=== PATIENT | male | born 1950 | race Caucasian/White ===

== ENCOUNTER → 2016-10-16 | Outpatient (CLI) | payer MEDICARE ==
--- NOTE | 2016-10-16 09:31 | XR ---
EXAM TYPE: LUMBAR SPINE X RAY SERIES COMPARISON: NONE HISTORY: Low back pain TECHNIQUE: 4 views are submitted. FINDINGS: Exam technically limited. Severe multilevel degenerative disc disease seen with scoliosis. Grade 1 an terolisthesis L4 and 5 and L5 and S1. Scoliotic curvature noted. Calcification in the right upper marly drant measures 8 mm. IMPRESSION: 1. Severe multilevel degenerative disc disease with scoliosis and marked facet arthropathy. Grade 1 a nterolisthesis L4 on 5 and L5 on S1.
== END | disposition home or self-care (01) ==
LOC: RADXRMAIN 08:48
PROVIDERS: ATTEND Internal Medicine
DX: M51.36 Other intervertebral disc degeneration, lumbar region (principal); M41.9 Scoliosis, unspecified; M12.88 Other specific arthropathies, not elsewhere classified, other specified site
CPT/HCPCS: 72110

== ENCOUNTER 2020-04-06 08:12 | Emergency (ER) | payer MEDICARE ==
[2020-04-06] MEDS ORDERED: ASPIRIN 81 MG PO STA (08:22)
[2020-04-06] MEDS ORDERED: DILTIAZEM DRIP BOLUS FROM BAG 1 MG SOLN IV ONE (08:23)
[2020-04-06 08:35] VITALS: RESP 18
[2020-04-06] MEDS ORDERED: METOPROLOL TARTRATE 50 MG TAB PO STA (08:41)
--- NOTE | 2020-04-06 08:45 | ED ---
General Adult HPI - General Chief complaint: Arrhythmia/Palpitations Stated complaint: Cardiac dysrhythmia Time Seen by Provider: 04/06/20 08:30 Source: patient, EMS, RN notes reviewed, old records reviewed Mode of arrival: EMS Limitations: no limitations - History of Present Illness Initial comments: This is a 69-year-old male with a past medical history significant for atrial fibrillation and high blood pressure. Patient states he woke up this morning had to urinate and he stated that he urinated approximately half a gallon. Patient states is very unusual. Patient states he did not take any diuretics. Patient states he started having a little pain in the left side of his neck and some chest discomfort he states it lasted about 5 minutes and so he called EMS. Patient states currently he is chest pain-free and he has no symptoms and feels at his baseline. Patient denies any headache patient denies numbness weakness. Patient denies any lightheadedness or dizziness. Patient denies any recent fever chills or cough per patient denies any abdominal pain patient denies nausea vomiting diarrhea. Patient denies any dysuria hematuria or urinary frequency just a large amount of urine when he went this morning. - Related Data Home Medications Medication Instructions Recorded Confirmed Aspirin EC [Ecotrin Low Dose] 81 mg PO DAILY 04/06/20 04/06/20 Benazepril [Lotensin] 10 mg PO DAILY 04/06/20 04/06/20 Econazole Nitrate [Econazole 1 applic TOPICAL DAILY PRN 04/06/20 04/06/20 Nitrate 1%] Fluticasone Nasal [place] [Flonase 2 spr EA NOSTRIL DAILY PRN 04/06/20 04/06/20 Nasal [place]] Furosemide [Lasix] 80 mg PO BID PRN 04/06/20 04/06/20 HYDROcodone/APAP 10-325MG [[place] 1 tab PO BID PRN 04/06/20 04/06/20 10-325] Hydrocortisone Cream 1 applic TOPICAL BID PRN 04/06/20 04/06/20 [Hydrocortisone 2.5% Cream] Metoprolol Tartrate [Lopressor] 25 mg PO BID 04/06/20 04/06/20 Potassium Chloride 8 meq PO DAILY PRN 04/06/20 04/06/20 oxyCODONE HCL [oxyCODONE HCL (IR)] 30 mg PO QID 04/06/20 04/06/20 Allergies Allergy/AdvReac Type Severity Reaction Status Date / Time No Known Allergies Allergy Verified 04/06/20 09:17 Review of Systems ROS Statement: Those systems with pertinent positive or pertinent negative responses have been documented in the HPI. ROS Other: All systems not noted in ROS Statement are negative. Past Medical History Past Medical History: Atrial Fibrillation, Hypertension History of Any Multi-Drug Resistant Organisms: None Reported Past Surgical History: Joint Replacement, Orthopedic Surgery, Tonsillectomy Additional Past Surgical History / Comment(s): WATCHMAN, MULTIPLE ORTHO SX Past Psychological History: No Psychological Hx Reported Smoking Status: Former smoker Past Alcohol Use History: None Reported Past Drug Use History: None Reported General Exam - General Exam Comments Initial Comments: GENERAL: Patient is well-developed and well-nourished. Patient is nontoxic and well- hydrated and is in no acute distress. ENT: Neck is soft and supple. No significant lymphadenopathy is noted. Oropharynx is clear. Moist mucous membranes. Neck has full range of motion without eliciting any pain. EYES: The sclera were anicteric and conjunctiva were pink and moist. Extraocular movements were intact and pupils were equal round and reactive to light. Ey elids were unremarkable. PULMONARY: Unlabored respirations. Good breath sounds bilaterally. No audible rales rhonchi or wheezing was noted. CARDIOVASCULAR: Patient's heart is irregular and about 150 beats a minute ABDOMEN: Soft and nontender with normal bowel sounds. No palpable organomegaly was noted. There is no palpable pulsatile mass. SKIN: Skin is clear with no lesions or rashes and otherwise unremarkable. NEUROLOGIC: Patient is alert and oriented x3. Cranial nerves II through XII are grossly intact. Motor and sensory are also intact. Normal speech, volume and content. Symmetrical smile. MUSCULOSKELETAL: Normal extremities with adequate strength and full range of motion. LYMPHATICS: No significant lymphadenopathy is noted PSYCHIATRIC: Normal psychiatric evaluation. Limitations: no limitations Course Vital Signs 04/06/20 04/06/20 04/06/20 08:31 08:40 09:36 Temperature 98 F Pulse Rate 154 H 61 63 Respiratory 18 18 18 Rate Blood Pressure 169/112 170/101 155/97 O2 Sat by Pulse 95 95 94 L Oximetry Medical Decision Making - Medical Decision Making EKG shows a atrial fibrillation with rapid ventricular response at 157 bpm QRS is 82 QT interval 390 QTC is 468. Patient's EKG shows no ST segment elevation. Patient was given a warm blanket and immediately after that patient converted to a normal sinus rhythm repeat EKG was showed a normal sinus rhythm at 62 bpm OR interval 174 QRS is 88 QT interval 414 QTC is 420. EKG shows no ST segment elevation or depression. Chest x-ray shows no acute abnormality. Patient was given 50 of metoprolol in the emergency department and his heart rate remained under 100. Patient was told that he probably should stay because he did have some chest discomfort and the fact that he had a heart rate of 150 260 on arrival. 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 At this point time I told the patient to take 37.5 mg of metoprolol twice a day as opposed to the prescribed amount 25 he was in agreement to that. Patient understands the risks of going home could lead to morbidity mortality. - Lab Data Result diagrams: 04/06/20 08:34 04/06/20 08:34 Lab Results 04/06/20 04/06/20 04/06/20 Range/Units 08:34 08:34 08:34 WBC 6.4 (3.8-10.6) k/uL RBC 5.68 (4.30-5.90) m/uL Hgb 16.3 (13.0-17.5) gm/dL Hct 52.6 (39.0-53.0) % MCV 92.7 (80.0-100.0) fL MCH 28.7 (25.0-35.0) pg MCHC 31.0 (31.0-37.0) g/dL RDW 13.9 (11.5-15.5) % Plt Count 201 (150-450) k/uL Neutrophils % 73 % Lymphocytes % 16 % Monocytes % 7 % Eosinophils % 1 % Basophils % 1 % Neutrophils # 4.7 (1.3-7.7) k/uL Lymphocytes # 1.0 (1.0-4.8) k/uL Monocytes # 0.4 (0-1.0) k/uL Eosinophils # 0.1 (0-0.7) k/uL Basophils # 0.1 (0-0.2) k/uL PT 10.6 (9.0-12.0) sec INR 1.0 (<1.2) APTT 25.5 (22.0-30.0) sec Sodium 138 (137-145) mmol/L Potassium 4.5 (3.5-5.1) mmol/L Chloride 104 (98-107) mmol/L Carbon Dioxide 29 (22-30) mmol/L Anion Gap 5 mmol/L BUN 16 (9-20) mg/dL Creatinine 1.01 (0.66-1.25) mg/dL Est GFR (CKD-EPI)AfAm 86 (>60 ml/min/1.73 sqM) Est GFR (CKD-EPI)NonAf 75 (>60 ml/min/1.73 sqM) Glucose 122 H (74-99) mg/dL Calcium 8.8 (8.4-10.2) mg/dL Magnesium 1.9 (1.6-2.3) mg/dL Total Bilirubin 1.4 H (0.2-1.3) mg/dL AST 35 (17-59) U/L ALT 16 (4-49) U/L Alkaline Phosphatase 67 (38-126) U/L Troponin I (0.000-0.034) ng/mL NT-Pro-B Natriuret Pep pg/mL Total Protein 7.5 (6.3-8.2) g/dL Albumin 4.1 (3.5-5.0) g/dL Urine Color Urine Appearance (Clear) Urine pH (5.0-8.0) Ur Specific [place] (1.001-1.035) Urine Protein (Negative) Urine Glucose (UA) (Negative) Urine Ketones (Negative) Urine Blood (Negative) Urine Nitrite (Negative) Urine Bilirubin (Negative) Urine Urobilinogen (<2.0) mg/dL Ur Leukocyte Esterase (Negative) 04/06/20 04/06/20 04/06/20 Range/Units 08:34 08:34 08:41 WBC (3.8-10.6) k/uL RBC (4.30-5.90) m/uL Hgb (13.0-17.5) gm/dL Hct (39.0-53.0) % MCV (80.0-100.0) fL MCH (25.0-35.0) pg MCHC (31.0-37.0) g/dL RDW (11.5-15.5) % Plt Count (150-450) k/uL Neutrophils % % Lymphocytes % % Monocytes % % Eosinophils % % Basophils % % Neutrophils # (1.3-7.7) k/uL Lymphocytes # (1.0-4.8) k/uL Monocytes # (0-1.0) k/uL Eosinophils # (0-0.7) k/uL Basophils # (0-0.2) k/uL PT (9.0-12.0) sec INR (<1.2) APTT (22.0-30.0) sec Sodium (137-145) mmol/L Potassium (3.5-5.1) mmol/L Chloride (98-107) mmol/L Carbon Dioxide (22-30) mmol/L Anion Gap mmol/L BUN (9-20) mg/dL Creatinine (0.66-1.25) mg/dL Est GFR (CKD-EPI)AfAm (>60 ml/min/1.73 sqM) Est GFR (CKD-EPI)NonAf (>60 ml/min/1.73 sqM) Glucose (74-99) mg/dL Calcium (8.4-10.2) mg/dL Magnesium (1.6-2.3) mg/dL Total Bilirubin (0.2-1.3) mg/dL AST (17-59) U/L ALT (4-49) U/L Alkaline Phosphatase (38-126) U/L Troponin I <0.012 (0.000-0.034) ng/mL NT-Pro-B Natriuret Pep 2320 pg/mL Total Protein (6.3-8.2) g/dL Albumin (3.5-5.0) g/dL Urine Color Light Yellow Urine Appearance Clear (Clear) Urine pH 7.5 (5.0-8.0) Ur Specific [place] 1.010 (1.001-1.035) Urine Protein Trace H (Negative) Urine Glucose (UA) Negative (Negative) Urine Ketones Negative (Negative) Urine Blood Negative (Negative) Urine Nitrite Negative (Negative) Urine Bilirubin Negative (Negative) Urine Urobilinogen <2.0 (<2.0) mg/dL Ur Leukocyte Esterase Negative (Negative) Critical Care Time Critical Care Time: Yes Total Critical Care Time: 35 Disposition Clinical Impression: Atrial fibrillation with RVR, Hypertensive urgency Disposition: HOME SELF-CARE Instructions (If sedation given, give patient instructions): A-fib (Atrial Fibrillation) (ED) Is patient prescribed a controlled substance at d/c from ED?: No Referrals: Sussy Moe MD [Primary Care Provider] - 1-2 days Time of Disposition: 09:51
[2020-04-06 08:49] LABS: Basophils # (A) 0.1 k/uL (0-0.2); Basophils % (A) 1 %; Eosinophils # (A) 0.1 k/uL (0-0.7); Eosinophils % (A) 1 %; HCT 52.6 % (39.0-53.0); HGB 16.3 gm/dL (13.0-17.5); Lymphocytes % (A) 16 %; MCH 28.7 pg (25.0-35.0); MCV 92.7 fL (80.0-100.0); Mean Platelet Volume 6.9; Monocytes # (A) 0.4 k/uL (0-1.0); Monocytes % (A) 7 %; Neutrophils # (A) 4.7 k/uL (1.3-7.7); Neutrophils % (A) 73 %; Platelet Count 201 k/uL (150-450); RBC 5.68 m/uL (4.30-5.90); RDW 13.9 % (11.5-15.5); WBC 6.4 k/uL (3.8-10.6)
[2020-04-06 08:59] LABS: Albumin 4.1 g/dL (3.5-5.0); Calcium 8.8 mg/dL (8.4-10.2); Magnesium 1.9 mg/dL (1.6-2.3); Total Bilirubin 1.4 mg/dL (0.2-1.3); Total Protein 7.5 g/dL (6.3-8.2)
[2020-04-06] MEDS ORDERED: DILTIAZEM 125 MG in SODIUM CHLORIDE 0.9% 100 ML IV SCH (09:00)
[2020-04-06 09:01] LABS: Potassium 4.5 mmol/L (3.5-5.1)
--- NOTE | 2020-04-06 09:13 | XR ---
EXAMINATION TYPE: XR chest 2V DATE OF EXAM: 04/06/2020 CLINICAL HISTORY: Chest pain TECHNIQUE: Frontal and lateral views of the chest are obtained. COMPARISON: None FINDINGS: The cardiomediastinal silhouette is within normal limits for size. There is tortuous cours e of the thoracic aorta. Pulmonary vasculature is normal. There is no focal air space opacity, pleura l effusion, or pneumothorax seen. Degenerative changes of the spine. Incompletely visualized left isaias ulder arthroplasty, with proximal component superior to the glenoid. IMPRESSION: No acute cardiopulmonary process.
[2020-04-06 09:14] LABS: Appearance,Urine Clear (Clear); Bilirubin,Urine Negative (Negative); Blood,Urine Negative (Negative); Color,Urine Light Yellow; Glucose,Urine (UA) Negative (Negative); Ketones,Urine Negative (Negative); Leukocyte Esterase,Urine Negative (Negative); Nitrite,Urine Negative (Negative); PH, Urine 7.5 (5.0-8.0); Protein,Urine Trace (Negative); Urobilinogen,Urine <2.0 mg/dL (<2.0)
[2020-04-06 09:38] LABS: Partial Thromboplastin Time 25.5 sec (22.0-30.0); Prothrombin Time 10.6 sec (9.0-12.0)
[2020-04-06 10:04] VITALS: BP 148/98; PULSE 62; TEMP 98.4
== END 2020-04-06 10:00 | disposition home or self-care (01) ==
LOC: EC 08:12
DX: I48.91 Unspecified atrial fibrillation (principal); I16.0 Hypertensive urgency; I10 Essential (primary) hypertension; Z79.82 Long term (current) use of aspirin; Z79.899 Other long term (current) drug therapy; Z87.891 Personal history of nicotine dependence
CPT/HCPCS: 36415; 71046; 80053; 81003; 83735; 83880; 84484; 85025; 85610; 85730; 93005; 99291

== ENCOUNTER 2020-04-24 23:23 | Emergency (ER) | payer MEDICARE ==
[2020-04-24 23:36] VITALS: RESP 18
[2020-04-24] MEDS ORDERED: hydrALAZINE HCL 20 MG/ML 1 ML VIAL IVP STA (23:49)
[2020-04-25 00:10] LABS: Basophils # (A) 0.1 k/uL (0-0.2); Basophils % (A) 1 %; Eosinophils # (A) 0.1 k/uL (0-0.7); Eosinophils % (A) 1 %; HCT 49.2 % (39.0-53.0); HGB 15.4 gm/dL (13.0-17.5); Lymphocytes # (A) 1.2 k/uL (1.0-4.8); Lymphocytes % (A) 13 %; MCH 29.3 pg (25.0-35.0); MCHC 31.3 g/dL (31.0-37.0); MCV 93.3 fL (80.0-100.0); Mean Platelet Volume 6.9; Monocytes # (A) 0.5 k/uL (0-1.0); Monocytes % (A) 5 %; Neutrophils # (A) 7.1 k/uL (1.3-7.7); Neutrophils % (A) 78 %; Platelet Count 187 k/uL (150-450); RBC 5.27 m/uL (4.30-5.90); RDW 13.8 % (11.5-15.5); WBC 9.1 k/uL (3.8-10.6)
[2020-04-25 00:22] LABS: Albumin 3.6 g/dL (3.5-5.0); Potassium 4.3 mmol/L (3.5-5.1); Total Bilirubin 0.6 mg/dL (0.2-1.3); Total Protein 6.4 g/dL (6.3-8.2)
--- NOTE | 2020-04-25 00:25 | ED ---
Headache HPI - General Chief Complaint: Headache Stated Complaint: Hypertension Time Seen by Provider: 04/24/20 23:37 Mode of arrival: EMS Limitations: physical limitation - History of Present Illness Initial Comments: 69 with hx HTN presenting today for cc of elevated blood pressure readings. Patient stats that he has had congestion and woke up this morning with a "stuffy nose" he states he used afrin and shortly after he felt "off" he states he was just fatigued and had had headache. He denies sudden onset of KELLY, or this being worst or first KELLY of his life. Denies localized neurological symptoms such as wekaness, sensation deficits, speech changes, visual changes or loss. Denies chest pain, SOB, back pain, decreased or changes in urine output,LE edema, nausea, vomiting, fevers, cough. Patient states he took his BP and it was elevated, he states he has been compliant with his benazapril and metoprolol. Patient states the headache resolved but the BP remained high throughout the day on arrival and history taking. Patient states "now I feel fine". Patient has no current complaints. He appears well nontxic, very kind and talkative. - Related Data Home Medications Medication Instructions Recorded Confirmed Aspirin EC [Ecotrin Low Dose] 81 mg PO DAILY 04/06/20 04/06/20 Benazepril [Lotensin] 10 mg PO DAILY 04/06/20 04/06/20 Econazole Nitrate [Econazole 1 applic TOPICAL DAILY PRN 04/06/20 04/06/20 Nitrate 1%] Fluticasone Nasal [place] [Flonase 2 spr EA NOSTRIL DAILY PRN 04/06/20 04/06/20 Nasal [place]] Furosemide [Lasix] 80 mg PO BID PRN 04/06/20 04/06/20 HYDROcodone/APAP 10-325MG [[place] 1 tab PO BID PRN 04/06/20 04/06/20 10-325] Hydrocortisone Cream 1 applic TOPICAL BID PRN 04/06/20 04/06/20 [Hydrocortisone 2.5% Cream] Metoprolol Tartrate [Lopressor] 25 mg PO BID 04/06/20 04/06/20 Potassium Chloride 8 meq PO DAILY PRN 04/06/20 04/06/20 oxyCODONE HCL [oxyCODONE HCL (IR)] 30 mg PO QID 04/06/20 04/06/20 Allergies Allergy/AdvReac Type Severity Reaction Status Date / Time No Known Allergies Allergy Verified 04/24/20 23:36 Review of Systems ROS Statement: Those systems with pertinent positive or pertinent negative responses have been documented in the HPI. ROS Other: All systems not noted in ROS Statement are negative. Past Medical History Past Medical History: Atrial Fibrillation, Hypertension History of Any Multi-Drug Resistant Organisms: None Reported Past Surgical History: Joint Replacement, Orthopedic Surgery, Tonsillectomy Additional Past Surgical History / Comment(s): WATCHMAN, MULTIPLE ORTHO SX Past Psychological History: No Psychological Hx Reported Smoking Status: Former smoker Past Alcohol Use History: None Reported Past Drug Use History: None Reported General Exam - General Exam Comments Initial Comments: General: The patient is awake and alert, in no distress, and does not appear acutely ill. Eye: +3 mm pupils are equal, round and reactive to light, extra-ocular movements are intact. No nystagmus. There is normal conjunctiva bilaterally. No signs of icterus. Ears, nose, mouth and throat: There are moist mucous membranes and no oral lesions. Neck: The neck is supple, there is no tenderness or JVD. Cardiovascular: There is a regular rate and rhythm. No murmur, rub or gallop is appreciated. Respiratory: Lungs are clear to auscultation, respirations are non-labored, breath sounds are equal. No wheezes, stridor, rales, or rhonchi. Gastrointestinal: Soft, non-distended, non-tender abdomen without masses or organomegaly noted. There is no rebound or guarding present. Musculoskeletal: Normal ROM, no tenderness. Strength 5/5. Sensation intact. radial pulses equal bilaterally 2+. Neurological: A&O x 3. CN II-XII intact, There are no obvious motor or sensory deficits. Coordination appears grossly intact. Speech is normal. Skin: Skin is warm and dry and no rashes or lesions are noted. NO LE edema. Psychiatric: Cooperative, appropriate mood & affect, normal judgment. Limitations: physical limitation Course Vital Signs 04/24/20 04/24/20 04/25/20 23:23 23:36 00:01 Temperature 98.5 F Pulse Rate 53 L 54 L 57 L Respiratory 18 18 18 Rate Blood Pressure 178/78 185/94 152/73 O2 Sat by Pulse 95 95 95 Oximetry 04/25/20 04/25/20 00:27 01:23 Temperature 98.4 F Pulse Rate 60 63 Respiratory 18 18 Rate Blood Pressure 134/79 138/72 O2 Sat by Pulse 96 95 Oximetry Medical Decision Making - Medical Decision Making Labs stable. Slight increase creatinine. BP improving. Denies to me any current symptoms. No focalized neurological deficits. No headache. Patient case discussed with Dr. Farrell we feel pt is stable for discharge with PCP f/u. Discontinuation of afrin and home BP monitoring. - Lab Data Result diagrams: 04/24/20 23:53 04/24/20 23:53 Lab Results 04/24/20 04/24/20 04/24/20 Range/Units 23:53 23:53 23:53 WBC 9.1 (3.8-10.6) k/uL RBC 5.27 (4.30-5.90) m/uL Hgb 15.4 (13.0-17.5) gm/dL Hct 49.2 (39.0-53.0) % MCV 93.3 (80.0-100.0) fL MCH 29.3 (25.0-35.0) pg MCHC 31.3 (31.0-37.0) g/dL RDW 13.8 (11.5-15.5) % Plt Count 187 (150-450) k/uL Neutrophils % 78 % Lymphocytes % 13 % Monocytes % 5 % Eosinophils % 1 % Basophils % 1 % Neutrophils # 7.1 (1.3-7.7) k/uL Lymphocytes # 1.2 (1.0-4.8) k/uL Monocytes # 0.5 (0-1.0) k/uL Eosinophils # 0.1 (0-0.7) k/uL Basophils # 0.1 (0-0.2) k/uL Sodium 138 (137-145) mmol/L Potassium 4.3 (3.5-5.1) mmol/L Chloride 103 (98-107) mmol/L Carbon Dioxide 31 H (22-30) mmol/L Anion Gap 4 mmol/L BUN 25 H (9-20) mg/dL Creatinine 1.50 H (0.66-1.25) mg/dL Est GFR (CKD-EPI)AfAm 54 (>60 ml/min/1.73 sqM) Est GFR (CKD-EPI)NonAf 46 (>60 ml/min/1.73 sqM) Glucose 120 H (74-99) mg/dL Calcium 9.0 (8.4-10.2) mg/dL Total Bilirubin 0.6 (0.2-1.3) mg/dL AST 22 (17-59) U/L ALT 13 (4-49) U/L Alkaline Phosphatase 88 (38-126) U/L Troponin I <0.012 (0.000-0.034) ng/mL Total Protein 6.4 (6.3-8.2) g/dL Albumin 3.6 (3.5-5.0) g/dL Disposition Clinical Impression: Elevated blood pressure reading, Headache Disposition: HOME SELF-CARE Condition: Good Instructions (If sedation given, give patient instructions): Chronic Hypertension (ED) Additional Instructions: Please use medication as discussed. Please follow-up with family doctor in the next 2 days. Discontinue Afrin. Please return to emergency room if the symptoms increase or worsen or for any other concerns. Is patient prescribed a controlled substance at d/c from ED?: No Referrals: Sussy Moe MD [Primary Care Provider] - 1-2 days Time of Disposition: 00:57
[2020-04-25 01:25] VITALS: BP 138/72; PULSE 63; TEMP 98.4
== END 2020-04-25 01:23 | disposition home or self-care (01) ==
LOC: EC 23:23
DX: I10 Essential (primary) hypertension (principal); Z79.899 Other long term (current) drug therapy; Z87.891 Personal history of nicotine dependence
CPT/HCPCS: 36415; 93005; 80053; 84484; 85025; 99284; 96374; J0360

== ENCOUNTER 2020-09-23 04:31 | Inpatient (IN) | payer MEDICARE ==
[2020-09-23] MEDS ORDERED: DILTIAZEM DRIP BOLUS FROM BAG 1 MG SOLN IV ONE ×3 (04:43→06:43)
--- NOTE | 2020-09-23 04:47 | ED ---
Arrhythmia/Palpitations HPI - General Chief Complaint: Arrhythmia/Palpitations Stated Complaint: Afib Time Seen by Provider: 09/23/20 04:42 Source: patient, EMS Mode of arrival: EMS Limitations: no limitations - History of Present Illness Initial Comments: This patient is 70-year-old man who is brought by ambulance to have evaluation for palpitations, generalized weakness, which have been getting worse over the course of last night and this morning. Are related to the palpitations come patient does state he has history of atrial fibrillation and has been taking metoprolol for this. The patient is not on anticoagulation, as he has had a watchman device implanted. Tonight, the patient also has been having some epigastric abdominal discomfort and some dyspnea. MD Complaint: palpitations -: hour(s) Context: occurred during rest Arrhythmia History: atrial fibrillation Associated Symptoms: cough, other (Congestion) - Related Data Home Medications Medication Instructions Recorded Confirmed Aspirin EC [Ecotrin Low Dose] 81 mg PO DAILY 04/06/20 09/23/20 Benazepril [Lotensin] 10 mg PO DAILY 04/06/20 09/23/20 Econazole Nitrate [Econazole 1 applic TOPICAL DAILY PRN 04/06/20 09/23/20 Nitrate 1%] Fluticasone Nasal [place] [Flonase 2 spr EA NOSTRIL DAILY PRN 04/06/20 09/23/20 Nasal [place]] Furosemide [Lasix] 80 mg PO BID PRN 04/06/20 09/23/20 HYDROcodone/APAP 10-325MG [[place] 1 tab PO TID PRN 04/06/20 09/23/20 10-325] Hydrocortisone Cream 1 applic TOPICAL BID PRN 04/06/20 09/23/20 [Hydrocortisone 2.5% Cream] Metoprolol Tartrate [Lopressor] 25 mg PO BID 04/06/20 09/23/20 Potassium Chloride 8 meq PO DAILY PRN 04/06/20 09/23/20 Amoxicillin 500 mg PO Q8H 09/23/20 09/23/20 oxyCODONE HCL [oxyCODONE HCL (IR)] 20 mg PO QID PRN 09/23/20 09/23/20 Allergies Allergy/AdvReac Type Severity Reaction Status Date / Time No Known Allergies Allergy Verified 09/23/20 04:34 Review of Systems ROS Statement: Those systems with pertinent positive or pertinent negative responses have been documented in the HPI. ROS Other: All systems not noted in ROS Statement are negative. Constitutional: Reports: fever. Denies: chills, weakness Respiratory: Reports: cough. Denies: dyspnea, wheezes Cardiovascular: Reports: palpitations. Denies: chest pain, orthopnea, edema, syncope Gastrointestinal: Reports: as per HPI, abdominal pain. Denies: nausea, vomiting, diarrhea, melena, hematochezia Genitourinary: Denies: dysuria, hematuria Musculoskeletal: Denies: back pain Skin: Denies: rash Neurological: Denies: headache, weakness, numbness Past Medical History Past Medical History: Atrial Fibrillation, Hypertension History of Any Multi-Drug Resistant Organisms: None Reported Past Surgical History: Joint Replacement, Orthopedic Surgery, Tonsillectomy Additional Past Surgical History / Comment(s): WATCHMAN, MULTIPLE ORTHO SX Past Psychological History: No Psychological Hx Reported Smoking Status: Former smoker Past Alcohol Use History: None Reported Past Drug Use History: None Reported - Past Family History Mother Family Medical History: Coronary Artery Disease (CAD) General Exam Limitations: no limitations General appearance: alert, in no apparent distress Head exam: Present: atraumatic, normocephalic Eye exam: Present: normal appearance. Absent: scleral icterus, conjunctival injection ENT exam: Present: normal oropharynx Neck exam: Present: normal inspection Respiratory exam: Present: normal lung sounds bilaterally. Absent: respiratory distress, wheezes, rales, rhonchi, stridor Cardiovascular Exam: Present: tachycardia, irregular rhythm, normal heart soun ds. Absent: systolic murmur, diastolic murmur, rubs, gallop GI/Abdominal exam: Present: soft. Absent: distended, tenderness, guarding, rebound, rigid, mass Extremities exam: Present: normal inspection, normal capillary refill. Absent: pedal edema, calf tenderness Back exam: Present: normal inspection. Absent: CVA tenderness (R), CVA tenderness (L) Neurological exam: Present: alert Skin exam: Present: warm, dry, intact, normal color. Absent: rash Course Vital Signs 09/23/20 09/23/20 09/23/20 04:34 04:55 05:05 Temperature 101.1 F H Pulse Rate 138 H 156 H Pulse Rate [ 168 H Apical] Respiratory 24 22 Rate Blood Pressure 138/99 115/83 O2 Sat by Pulse 87 L 93 L Oximetry 09/23/20 09/23/20 09/23/20 05:14 05:42 06:00 Temperature Pulse Rate 137 H 147 H 147 H Pulse Rate [ Apical] Respiratory 18 22 Rate Blood Pressure 128/99 114/58 O2 Sat by Pulse 93 L 92 L Oximetry 09/23/20 09/23/20 09/23/20 06:41 06:48 06:52 Temperature 100.7 F H Pulse Rate 144 H 131 H 151 H Pulse Rate [ Apical] Respiratory 22 22 18 Rate Blood Pressure 78/65 90/70 81/59 O2 Sat by Pulse 94 L 93 L 90 L Oximetry 09/23/20 09/23/20 09/23/20 07:20 07:34 07:57 Temperature 99.1 F Pulse Rate 134 H Pulse Rate [ Apical] Respiratory 20 Rate Blood Pressure 86/62 109/94 101/75 O2 Sat by Pulse 93 L Oximetry 09/23/20 09/23/20 09/23/20 09:03 11:20 11:24 Temperature Pulse Rate 131 H 121 H 133 H Pulse Rate [ Apical] Respiratory 18 18 18 Rate Blood Pressure 83/65 82/61 O2 Sat by Pulse 93 L 93 L Oximetry 09/23/20 09/23/20 12:00 12:32 Temperature 99.0 F Pulse Rate 125 H Pulse Rate [ Apical] Respiratory 18 Rate Blood Pressure 104/74 116/82 O2 Sat by Pulse 93 L 93 L Oximetry EKG Findings - EKG Results: EKG: interpreted by ERMD, normal axis EKG shows: atrial fibrillation (With RVR rate approximately 158 bpm) - Blocks, [place], Hypertrophy, ST Abn: Repolarization changes or abnormalities: ST suggestive of injury Medical Decision Making - Medical Decision Making Patient 70-year-old man with history of atrial fibrillation, presenting with at rial fibrillation and rapid ventricular response. Patient also found to have Covid 19 infection. Cardizem started here and rate has come down from the neighborhood of 162 proximally 120. Case is discussed with admitting physician and will have cardiology consultation as well. - Lab Data Result diagrams: 09/24/20 07:06 09/24/20 07:06 Lab Results 09/23/20 09/23/20 09/23/20 Range/Units 04:52 04:52 04:52 WBC 4.5 (3.8-10.6) k/uL RBC 5.06 (4.30-5.90) m/uL Hgb 15.4 (13.0-17.5) gm/dL Hct 45.4 (39.0-53.0) % MCV 89.6 (80.0-100.0) fL MCH 30.5 (25.0-35.0) pg MCHC 34.0 (31.0-37.0) g/dL RDW 14.0 (11.5-15.5) % Plt Count 125 L (150-450) k/uL MPV 8.4 Neutrophils % 68 % Lymphocytes % 15 % Monocytes % 12 % Eosinophils % 0 % Basophils % 1 % Neutrophils # 3.0 (1.3-7.7) k/uL Lymphocytes # 0.7 L (1.0-4.8) k/uL Monocytes # 0.5 (0-1.0) k/uL Eosinophils # 0.0 (0-0.7) k/uL Basophils # 0.0 (0-0.2) k/uL PT 10.6 (9.0-12.0) sec INR 1.0 (<1.2) APTT 25.3 (22.0-30.0) sec Sodium 135 L (137-145) mmol/L Potassium 4.1 (3.5-5.1) mmol/L Chloride 100 (98-107) mmol/L Carbon Dioxide 28 (22-30) mmol/L Anion Gap 7 mmol/L BUN 22 H (9-20) mg/dL Creatinine 1.10 (0.66-1.25) mg/dL Est GFR (CKD-EPI)AfAm 77 (>60 ml/min/1.73 sqM) Est GFR (CKD-EPI)NonAf 67 (>60 ml/min/1.73 sqM) Glucose 118 H (74-99) mg/dL Calcium 8.1 L (8.4-10.2) mg/dL Magnesium 2.0 (1.6-2.3) mg/dL Total Bilirubin 1.3 (0.2-1.3) mg/dL AST 62 H (17-59) U/L ALT 36 (4-49) U/L Alkaline Phosphatase 48 (38-126) U/L Troponin I (0.000-0.034) ng/mL Total Protein 6.6 (6.3-8.2) g/dL Albumin 3.5 (3.5-5.0) g/dL TSH 0.950 (0.465-4.680) mIU/L Coronavirus (PCR) (Not Detectd) 09/23/20 09/23/20 Range/Units 04:52 04:52 WBC (3.8-10.6) k/uL RBC (4.30-5.90) m/uL Hgb (13.0-17.5) gm/dL Hct (39.0-53.0) % MCV (80.0-100.0) fL MCH (25.0-35.0) pg MCHC (31.0-37.0) g/dL RDW (11.5-15.5) % Plt Count (150-450) k/uL MPV Neutrophils % % Lymphocytes % % Monocytes % % Eosinophils % % Basophils % % Neutrophils # (1.3-7.7) k/uL Lymphocytes # (1.0-4.8) k/uL Monocytes # (0-1.0) k/uL Eosinophils # (0-0.7) k/uL Basophils # (0-0.2) k/uL PT (9.0-12.0) sec INR (<1.2) APTT (22.0-30.0) sec Sodium (137-145) mmol/L Potassium (3.5-5.1) mmol/L Chloride (98-107) mmol/L Carbon Dioxide (22-30) mmol/L Anion Gap mmol/L BUN (9-20) mg/dL Creatinine (0.66-1.25) mg/dL Est GFR (CKD-EPI)AfAm (>60 ml/min/1.73 sqM) Est GFR (CKD-EPI)NonAf (>60 ml/min/1.73 sqM) Glucose (74-99) mg/dL Calcium (8.4-10.2) mg/dL Magnesium (1.6-2.3) mg/dL Total Bilirubin (0.2-1.3) mg/dL AST (17-59) U/L ALT (4-49) U/L Alkaline Phosphatase (38-126) U/L Troponin I 0.056 H* (0.000-0.034) ng/mL Total Protein (6.3-8.2) g/dL Albumin (3.5-5.0) g/dL TSH (0.465-4.680) mIU/L Coronavirus (PCR) Detected A (Not Detectd) Critical Care Time Critical Care Time: Yes (30 minutes) Disposition Clinical Impression: Atrial fibrillation, COVID-19, Elevated troponin I level Disposition: ADMITTED IP TO THIS HOSP Condition: Poor
[2020-09-23] MEDS ORDERED: DILTIAZEM 125 MG in SODIUM CHLORIDE 0.9% 100 ML IV SCH (05:00)
[2020-09-23 05:05] LABS: Basophils % (A) 1 %; Eosinophils % (A) 0 %; HCT 45.4 % (39.0-53.0); HGB 15.4 gm/dL (13.0-17.5); Lymphocytes # (A) 0.7 k/uL (1.0-4.8); Lymphocytes % (A) 15 %; MCH 30.5 pg (25.0-35.0); MCV 89.6 fL (80.0-100.0); Mean Platelet Volume 8.4; Monocytes # (A) 0.5 k/uL (0-1.0); Monocytes % (A) 12 %; Neutrophils % (A) 68 %; Platelet Count 125 k/uL (150-450); RBC 5.06 m/uL (4.30-5.90); WBC 4.5 k/uL (3.8-10.6)
[2020-09-23 05:15] LABS: Calcium 8.1 mg/dL (8.4-10.2); Total Bilirubin 1.3 mg/dL (0.2-1.3)
[2020-09-23] MEDS ORDERED: ACETAMINOPHEN TAB 325 MG TAB PO STA (05:20)
[2020-09-23 05:21] LABS: Potassium 4.1 mmol/L (3.5-5.1)
[2020-09-23 05:22] LABS: Albumin 3.5 g/dL (3.5-5.0); Total Protein 6.6 g/dL (6.3-8.2)
[2020-09-23] MEDS ORDERED: HYDROmorphone 1 MG/ML 1 ML SYRINGE IVP STA (05:22)
[2020-09-23 05:25] LABS: Partial Thromboplastin Time 25.3 sec (22.0-30.0); Prothrombin Time 10.6 sec (9.0-12.0)
--- NOTE | 2020-09-23 05:48 | XR ---
EXAMINATION TYPE: XR chest 1V portable DATE OF EXAM: 09/23/2020 COMPARISON: 04/06/2020 HISTORY: Chest pain TECHNIQUE: Single frontal view of the chest is obtained. FINDINGS: Exam is mildly limited by poor inspiratory effort. The lungs are clear. There is no pleural effusion or pneumothorax. Heart size and pulmonary vasculatu re are within normal limits. There is mild persistent elevation right hemisphere diaphragm which was seen previously. IMPRESSION: No acute cardiopulmonary disease with no interval change.
[2020-09-23] MEDS ORDERED: NITROGLYCERIN SL TABS 0.4 MG TAB SUBLINGUAL PRN (06:23)
[2020-09-23] MEDS ORDERED: SODIUM CHLORIDE 0.9% 500 ML 500 ML IV STA (06:39)
[2020-09-23] MEDS: DILTIAZEM 125 MG in SODIUM CHLORIDE 0.9% 100 ML IV SCH ×2 (06:45→16:21)
[2020-09-23] MEDS ORDERED: METOPROLOL TARTRATE 5 MG/5 ML VIAL IVP PRN (08:51)
[2020-09-23] MEDS ORDERED: HYDROcodone/APAP 5-325MG 1 EACH TAB PO PRN (08:58)
[2020-09-23] MEDS ORDERED: ACETAMINOPHEN TAB 325 MG TAB PO PRN (08:58)
[2020-09-23] MEDS ORDERED: MELATONIN 3 MG TABLET PO PRN (08:58)
[2020-09-23] MEDS ORDERED: ALBUTEROL NEBULIZED 2.5 MG/3 ML INHALATION PRN (10:51)
[2020-09-23] MEDS ORDERED: FLUTICASONE 50MCG/SPRAY NASAL 16GM EA NOSTRIL PRN (10:59)
[2020-09-23] MEDS ORDERED: NALOXONE 0.4 MG/ML 1 ML VIAL IV PRN (11:01)
[2020-09-23] MEDS: METOPROLOL TARTRATE 25 MG TAB PO SCH ×2 (11:15→20:18)
[2020-09-23 11:16] LABS: C Reactive Protein 52.6 mg/L (<10.0)
[2020-09-23] MEDS: ASCORBIC ACID 500 MG TAB PO SCH (11:19)
[2020-09-23] MEDS: FAMOTIDINE 20 MG TAB PO SCH (11:19)
[2020-09-23] MEDS: dexAMETHasone 2 MG TAB PO SCH (11:19)
[2020-09-23] MEDS: ASPIRIN 81 MG PO SCH (11:19)
[2020-09-23] MEDS: ZINC SULFATE 220 MG CAP PO SCH (11:19)
[2020-09-23] MEDS: HEPARIN SODIUM,PORCINE/PF 5,000 UNIT/0.5 ML SYRINGE SQ SCH ×2 (11:20→11:24)
[2020-09-23] MEDS ORDERED: ALBUTEROL NEBULIZED 2.5 MG/3 ML INHALATION SCH (12:00)
--- NOTE | 2020-09-23 12:34 | ECHOF ---
Referral Reason:LV function, afib MEASUREMENTS -------- HEIGHT: 180.3 cm WEIGHT: 133.8 kg BP: IVSd: 1.8 cm (0.6 - 1.1) LVIDd: 4.0 cm (3.9 - 5.3) LVPWd: 1.5 cm (0.6 - 1.1) IVSs: 2.1 cm LVIDs: 2.6 cm LVPWs: 1.8 cm Ao Diam: 3.2 cm (2.0 - 3.7) LA Diam: 4.0 cm (2.7 - 3.8) AR PHT: 537 ms RAP: 5.00 mmHg RVSP: 14.20 mmHg FINDINGS -------- Atrial fibrillation. This was a technically difficult study with suboptimal views. The left ventricular size is normal. There is moderate concentric left ventricular hypertrophy. O verall left ventricular systolic function is normal with, an EF between 55 - 60 %. Left ventricular fillimg pressure cannot be estimated due to Atrial fibrillation. The right ventricle is normal in size. The left atrium is mildly dilated. The right atrial size is normal. 5.0mg OF [place] UTLIZED: 2 OR MORE WALL SEGMENTS NOT VISUALIZED. The aortic valve was not well visualized. Trace amount of aortic regurgitation. The mitral valve is normal. There is trace mitral regurgitation. The tricuspid valve appears structurally normal. Trace tricuspid regurgitation present. Right shaye tricular systolic pressure is normal at < 35 mmHg. There is no pulmonic regurgitation present. The aortic root size is normal. IVC Not well visulized. There is no pericardial effusion. CONCLUSIONS -------- 1. The left ventricular size is normal. 2. There is moderate concentric left ventricular hypertrophy. 3. Overall left ventricular systolic function is normal with, an EF between 55 - 60 %. 4. Left ventricular fillimg pressure cannot be estimated due to Atrial fibrillation. 5. The left atrium is mildly dilated. 6. Trace amount of aortic regurgitation. 7. There is trace mitral regurgitation. 8. Trace tricuspid regurgitation present. 9. There is no pericardial effusion. HEEL BOOM OPERATOR: Karoline Feng, [facility]
--- NOTE | 2020-09-23 12:50 | CONS ---
CONSULTATION CHIEF COMPLAINT: Atrial fibrillation with rapid ventricular rate. Dino is a 70-year-old gentleman with history of paroxysmal atrial fibrillation and hypertension status post Watchman device, who sees my associate Dr. Danielson on a regular basis, comes to hospital complaining of fatigue, tiredness, not feeling well, coughing and has been diagnosed with COVID infection. He was also found to be in atrial fibrillation with rapid ventricular rate for which Cardiology had been consulted. He is currently on intravenous Cardizem with reasonably well controlled heart rates. He is also on Lopressor as needed. He is not on IV heparin as he already had a Watchman device and was thought not to be a candidate for long-term oral anticoagulation. The exact reason for this is unclear. The patient tells me that the anticoagulants were difficult to manage and the were too expensive and not sure if this is indeed the reason. PAST MEDICAL HISTORY: Significant for paroxysmal atrial fibrillation and hypertension. MEDICATIONS: Medications at home include Lotensin 10 mg daily, aspirin, Flonase, Lopressor 25 b.i.d., Lasix 80 b.i.d. on an as needed basis, [place] and oxycodone. ALLERGIES: There are no known drug allergies. FAMILY HISTORY: Significant for premature coronary artery disease in his mother. SOCIAL HISTORY: Significant for smoking. There is no history of EtOH abuse or drug abuse. REVIEW OF SYSTEMS: HEENT: Unremarkable. CARDIAC: Significant for palpitations. RESPIRATORY: Significant for cough and shortness of breath. PSYCHOSOCIAL: Negative. ENDOCRINE: Negative. HEMATOLOGIC: Negative. DERM: Negative. CONSTITUTIONAL: Significant for fatigue, tiredness and feverishness. NEUROLOGICAL: Negative. Rest of the system review is not relevant. PHYSICAL EXAMINATION: Temperature is 99.1, heart rate is 130 beats per minute, blood pressure is 101/75, respiratory rate is 18, O2 saturation is 93% on 2 L. I have seen the patient from outside the room and in an effort to ( ) protective equipment, I did not perform a complete physical exam. LABS: I had extensive discussion with the patient's nurse. Labs show a hemoglobin of 15.4, platelet count 155, potassium is 4.1 creatinine is 1.1. Troponin is elevated at 0.056. Coronavirus is positive. The EKG shows atrial fibrillation with nonspecific ST-T wave changes. Chest x-ray is negative. ASSESSMENT: 1. Persistent atrial fibrillation with poorly controlled ventricular rate. 2. COVID infection. 3. Mild troponin elevation probably related to the constitutional illness. This is not suggestive of a myocardial infarction. PLAN: I am going to obtain a 2D echo on him to evaluate his LV function and wall motion. Continue the patient on IV Cardizem. He does not need anticoagulation. Troponin elevation is of no significance. I will just obtain one more troponin on him. Thank you for allowing us to participate in the care of this pleasant gentleman. TON / TIKAN: [id number] /
[2020-09-23] MEDS ORDERED: METOPROLOL TARTRATE 5 MG/5 ML VIAL IVP STA (13:32)
[2020-09-23] MEDS ORDERED: METOPROLOL TARTRATE 25 MG TAB PO STA (13:33)
[2020-09-23] MEDS: SODIUM CHLORIDE 0.9% 1,000 ML IV SCH (13:48)
[2020-09-23] MEDS ORDERED: ALBUTEROL HFA INHALER INHALATION PRN (14:00)
[2020-09-23 14:55] LABS: Glucose,Whole Blood 132 mg/dL (75-99)
[2020-09-23] MEDS: ONDANSETRON 4 MG/2 ML VIAL IVP PRN (15:00)
[2020-09-23] MEDS: ALBUTEROL HFA INHALER INHALATION SCH ×2 (15:40→19:50)
[2020-09-23] MEDS: HYDROcodone/APAP 10-325MG 1 EACH TAB PO PRN (16:26)
--- NOTE | 2020-09-23 17:03 | P.HPIM ---
<Ger Johnson - Last Filed: 09/23/20 16:01> History of Present Illness H&P Date: 09/23/20 History of presenting illness: Patient is a 70-year-old male with a past medical history significant for hypertension and atrial fibrillation not on anticoagulation but has implanted watchman's device. He presented to the emergency department this morning with a chief complaint of palpitations accompanied by a fever, generalized weakness and fatigue, epigastric pain, and dyspnea. Patient was seen and fully evaluated in the emergency department resulting in diagnosis of atrial fibrillation with RVR in the 160's along with acute respiratory failure with hypoxia requiring oxygen supplementation. He was admitted under our services for continued medical management along with consult to cardiology. Upon evaluation at bedside, pt reports he has been experiencing generalized weakness and fatigue along with a fever and loss of appetite beginning 2 days ago. Patient reports early this morning he awoke feeling his heart racing and this was accompanied by epigastric pain described as a hunger-like pain and shortness of breath. Pt reports resolution of epigastric pain and shortness of breath but continues to be febrile, feel as though his heart is racing and has no appetite. Patient remains in A. fib RVR at this time with heart rate in 130s and is on a Cardizem infusion, order placed for Lopressor 1 dose. Covid 19 virus PCR was POSITIVE. Troponins were found to be elevated at 0.056, 0.065, and 0.068. EKG revealed A. fib RVR with ventricular rate of 158 bpm. Chest x-ray showing no acute cardiopulmonary process. Echocardiogram revealed an ejection fraction of 55-60%. Cardiology and pulmonology consulted. Review of systems: Pertinent positives and negatives as discussed in HPI, a complete review of systems was performed and all other systems are negative. Physical exam: General: Non toxic, appears at stated age, patient appears uncomfortable showing signs of acute distress secondary to uncontrolled tachycardic rate. Derm: warm, dry Head: atraumatic, normocephalic, symmetric Eyes: EOMI, no lid lag, anicteric sclera Mouth: no lip lesion, mucus membranes moist Cardiovascular: Irregularly irregular rhythm and tachycardic rate. No murmur. Positive posterior tibial pulses bilaterally. No lower extremity edema. Cap refill less than 2 seconds. Lungs: Respirations even, regular, and unlabored on 2 L O2 via nasal cannula with SpO2 of 93%. (Patient was 86% on room air). Lungs clear to auscultation bilaterally. No wheezes, rhonchi, or rales noted. Abdominal: soft, nontender to palpation, no guarding, no appreciable organomegaly Ext: no gross muscle atrophy, no edema, no contractures Neuro: GCS 15. Speech clear. No focal neuro deficits Psych: Alert, oriented, appropriate affect Assessment and Plan of Care: Atrial fibrillation with RVR -EKG revealing A. fib RVR with ventricular rate of 158 bpm -Echocardiogram revealed an ejection fraction of 55-60%. -Watchman's Device in place. -Continue Cardizem infusion at 15 mg per hour -Lopressor 5 mg IVP 1 dose -Resume daily Lopressor 25 mg twice daily -Continuous telemetry monitoring -Cardiology consult, appreciate recommendations Acute hypoxic respiratory failure secondary to Covid 19 pneumonitis -Chest x-ray negative for acute cardiopulmonary process. -Covid 19 positive on 09/23/20 -Oxygenation to be administered and titrated as needed to maintain SPO2 equal to or greater than 92%, wean once patient able -Dexamethasone 6 mg daily, day 1 of 10 for steroid -Zinc, vitamin C, vitamin D, and melatonin -Bronchodilator protocol with MDIs as needed for SOB and/or wheezing -Incentive Spirometry Elevated troponin, likely secondary to demand ischemia resulting from prolonged persistent RVR. -Troponins found to be elevated at 0.056, 0.065, and 0.068 -EKG revealing A. fib RVR with ventricular rate of 158 bpm. -Echocardiogram revealed an ejection fraction of 55-60%. -Continuous telemetry monitoring -Treatment of underlying cause, please see assessment and plan of care for A. fib with RVR -Continue daily metoprolol Thrombocytopenia -Thrombocytopenia with platelet count of 125,000 -Possibly secondary to recurrent infection with Covid 19 virus. -We will continue to monitor with repeat a.m. labs. Prerenal azotemia -BUN 22, creatinine 1.10, and GFR of 67. -Possibly secondary to daily Lasix use 80 mg twice daily. Encourage oral hydration and continue to monitor closely. -We will continue to monitor with repeat a.m. labs. Hypertension -Monitor vital signs and continue daily medication management. Patient admitted for greater than 2 night stay secondary to atrial fibrillation with persistent RVR and acute respiratory failure with hypoxia secondary to Covid pneumonitis. CODE STATUS: Full code DVT prophylaxis: Heparin Discussed with: Patient and RN Anticipated discharge date: Clinical course to determine Anticipated discharge place: Home A total of 45 minutes was spent on the care of this complex patient more than 50% of the time was spent in counseling and care coordination. Past Medical History Past Medical History: Atrial Fibrillation, Hypertension History of Any Multi-Drug Resistant Organisms: None Reported Past Surgical History: Joint Replacement, Orthopedic Surgery, Tonsillectomy Additional Past Surgical History / Comment(s): WATCHMAN, MULTIPLE ORTHO SX Past Psychological History: No Psychological Hx Reported Smoking Status: Former smoker Past Alcohol Use History: None Reported Past Drug Use History: None Reported Medications and Allergies Home Medications Medication Instructions Recorded Confirmed Type Aspirin EC [Ecotrin Low Dose] 81 mg PO DAILY 04/06/20 09/23/20 History Benazepril [Lotensin] 10 mg PO DAILY 04/06/20 09/23/20 History Econazole Nitrate [Econazole 1 applic TOPICAL DAILY PRN 04/06/20 09/23/20 History Nitrate 1%] Fluticasone Nasal [place] [Flonase 2 spr EA NOSTRIL DAILY PRN 04/06/20 09/23/20 History Nasal [place]] Furosemide [Lasix] 80 mg PO BID PRN 04/06/20 09/23/20 History HYDROcodone/APAP 10-325MG [[place] 1 tab PO TID PRN 04/06/20 09/23/20 History 10-325] Hydrocortisone Cream 1 applic TOPICAL BID PRN 04/06/20 09/23/20 History [Hydrocortisone 2.5% Cream] Metoprolol Tartrate [Lopressor] 25 mg PO BID 04/06/20 09/23/20 History Potassium Chloride 8 meq PO DAILY PRN 04/06/20 09/23/20 History Amoxicillin 500 mg PO Q8H 09/23/20 09/23/20 History oxyCODONE HCL [oxyCODONE HCL (IR)] 20 mg PO QID PRN 09/23/20 09/23/20 History Allergies Allergy/AdvReac Type Severity Reaction Status Date / Time No Known Allergies Allergy Verified 09/23/20 04:34 Physical Exam Vitals: Vital Signs Temp Pulse Pulse Resp BP Pulse Ox 09/23/20 06:52 151 H 18 81/59 90 L 09/23/20 06:48 131 H 22 90/70 93 L 09/23/20 06:41 100.7 F H 144 H 22 78/65 94 L 09/23/20 06:00 147 H 22 114/58 92 L 09/23/20 05:42 147 H 18 128/99 93 L 09/23/20 05:14 137 H 09/23/20 05:05 156 H 22 115/83 93 L 09/23/20 04:55 168 H 09/23/20 04:34 101.1 F H 138 H 24 138/99 87 L Intake and Output 09/22/20 09/23/20 09/23/20 22:59 06:59 14:59 Other: Weight 133.81 kg Results CBC & Chem 7: 09/23/20 04:52 09/23/20 04:52 Labs: Abnormal Lab Results - Last 24 Hours (Table) 09/23/20 09/23/20 09/23/20 Range/Units 04:52 04:52 04:52 Plt Count 125 L (150-450) k/uL Lymphocytes # 0.7 L (1.0-4.8) k/uL Sodium 135 L (137-145) mmol/L BUN 22 H (9-20) mg/dL Glucose 118 H (74-99) mg/dL Calcium 8.1 L (8.4-10.2) mg/dL AST 62 H (17-59) U/L Troponin I 0.056 H* (0.000-0.034) ng/mL Coronavirus (PCR) (Not Detectd) 09/23/20 Range/Units 04:52 Plt Count (150-450) k/uL Lymphocytes # (1.0-4.8) k/uL Sodium (137-145) mmol/L BUN (9-20) mg/dL Glucose (74-99) mg/dL Calcium (8.4-10.2) mg/dL AST (17-59) U/L Troponin I (0.000-0.034) ng/mL Coronavirus (PCR) Detected A (Not Detectd) <Maribel Cherry - Last Filed: 09/23/20 17:59> Physical Exam Osteopathic Statement: *. No significant issues noted on an osteopathic structural exam other than those noted in the History and Physical/Consult. Vitals: Vital Signs Temp Pulse Pulse Resp BP BP Pulse Ox 09/23/20 16:00 93 L 09/23/20 14:00 130 H 09/23/20 13:57 120 H 120/67 09/23/20 13:15 97.9 F 150 H 22 120/64 86 L 09/23/20 12:32 99.0 F 125 H 18 116/82 93 L 09/23/20 12:00 104/74 93 L 09/23/20 11:24 133 H 18 82/61 93 L 09/23/20 11:20 121 H 18 83/65 93 L 09/23/20 09:03 131 H 18 09/23/20 07:57 101/75 09/23/20 07:34 99.1 F 134 H 20 109/94 93 L 09/23/20 07:20 86/62 09/23/20 06:52 151 H 18 81/59 90 L 09/23/20 06:48 131 H 22 90/70 93 L 09/23/20 06:41 100.7 F H 144 H 22 78/65 94 L 09/23/20 06:00 147 H 22 114/58 92 L 09/23/20 05:42 147 H 18 128/99 93 L 09/23/20 05:14 137 H 09/23/20 05:05 156 H 22 115/83 93 L 09/23/20 04:55 168 H 09/23/20 04:34 101.1 F H 138 H 24 138/99 87 L Intake and Output 09/23/20 09/23/20 09/23/20 06:59 14:59 22:59 Intake Total 41.5 81.75 Output Total 1 Balance 41.5 80.75 Intake: Intake, IV Titration 41.5 81.75 Amount Diltiazem 125 mg In 41.5 81.75 Sodium Chloride 0.9% 100 ml @ 10 MG/HR 10 mls/hr IV .[id number] [facility] Rx#: [id number] Output: Stool 1 Other: Weight 133.81 kg Results CBC & Chem 7: 09/23/20 04:52 09/23/20 04:52 Labs: Abnormal Lab Results - Last 24 Hours (Table) 09/23/20 09/23/20 09/23/20 Range/Units 04:52 04:52 04:52 Plt Count 125 L (150-450) k/uL Lymphocytes # 0.7 L (1.0-4.8) k/uL D-Dimer (<0.60) mg/L FEU Sodium 135 L (137-145) mmol/L BUN 22 H (9-20) mg/dL Glucose 118 H (74-99) mg/dL POC Glucose (mg/dL) (75-99) mg/dL Calcium 8.1 L (8.4-10.2) mg/dL AST 62 H (17-59) U/L Lactate Dehydrogenase (313-618) U/L Troponin I 0.056 H* (0.000-0.034) ng/mL C-Reactive Protein (<10.0) mg/L Coronavirus (PCR) (Not Detectd) 09/23/20 09/23/20 09/23/20 Range/Units 04:52 10:07 10:07 Plt Count (150-450) k/uL Lymphocytes # (1.0-4.8) k/uL D-Dimer 0.69 H (<0.60) mg/L FEU Sodium (137-145) mmol/L BUN (9-20) mg/dL Glucose (74-99) mg/dL POC Glucose (mg/dL) (75-99) mg/dL Calcium (8.4-10.2) mg/dL AST (17-59) U/L Lactate Dehydrogenase (313-618) U/L Troponin I 0.065 H* (0.000-0.034) ng/mL C-Reactive Protein (<10.0) mg/L Coronavirus (PCR) Detected A (Not Detectd) 09/23/20 09/23/20 09/23/20 Range/Units 10:07 12:35 14:52 Plt Count (150-450) k/uL Lymphocytes # (1.0-4.8) k/uL D-Dimer (<0.60) mg/L FEU Sodium (137-145) mmol/L BUN (9-20) mg/dL Glucose (74-99) mg/dL POC Glucose (mg/dL) 132 H (75-99) mg/dL Calcium (8.4-10.2) mg/dL AST (17-59) U/L Lactate Dehydrogenase 638 H (313-618) U/L Troponin I 0.068 H* (0.000-0.034) ng/mL C-Reactive Protein 52.6 H (<10.0) mg/L Coronavirus (PCR) (Not Detectd) Assessment and Plan Assessment: Patient seen and examined independently. Patient was also seen by Ger Johnson NP and case was discussed. I am in agreement with subjective, physical exam, assessment and plan as written above and amended below. Complain of being hungry, denies palpitations, no chest pain, no shortness of breath General: non toxic, no distress, appears at stated age Derm: warm, dry Head: atraumatic, normocephalic, symmetric Eyes: EOMI, no lid lag, anicteric sclera Mouth: no lip lesion, mucus membranes moist Cardiovascular: S1S2 irreg, tachy, no murmur, positive posterior tibial pulse bilateral, Lungs:Decreased bs bilateral, no rhonchi, no rales , no accessory muscle use Psych: Alert, oriented, appropriate affect A. fib with rapid ventricular response -On arrival to the room patient's heart rate 150-168. Cardizem drip currently at time. Patient had not been yet administer IV metoprolol -Found nurse asked her to increase Cardizem drip to 15 mg/h. Home dose of metopr olol restarted. Facilitated transfer upstairs through [facility] COVID-19 pneumonitis with acute hypoxic respiratory failure -Decadron initiated - Vitamins, heparin should be transitioned to lovenox - consult pulm- dRem X 1 ordered through pharmacy.
[2020-09-23] MEDS ORDERED: REMDESIVIR 200 MG in SODIUM CHLORIDE 0.9% 250 ML IVPB ONE (18:00)
[2020-09-24] MEDS: HYDROcodone/APAP 10-325MG 1 EACH TAB PO PRN ×2 (01:49→11:16)
[2020-09-24] MEDS: DILTIAZEM 125 MG in SODIUM CHLORIDE 0.9% 100 ML IV SCH ×2 (01:50→20:48)
[2020-09-24] MEDS: SODIUM CHLORIDE 0.9% 1,000 ML IV SCH (06:44)
[2020-09-24 07:38] LABS: Albumin 3.1 g/dL (3.5-5.0); Calcium 8.4 mg/dL (8.4-10.2); Magnesium 2.1 mg/dL (1.6-2.3); Potassium 4.3 mmol/L (3.5-5.1); Total Bilirubin 0.7 mg/dL (0.2-1.3); Total Protein 5.8 g/dL (6.3-8.2)
[2020-09-24 07:48] LABS: HCT 50.5 % (39.0-53.0); HGB 16.1 gm/dL (13.0-17.5); MCH 29.2 pg (25.0-35.0); MCHC 31.8 g/dL (31.0-37.0); MCV 91.8 fL (80.0-100.0); Mean Platelet Volume 7.4; Platelet Count 141 k/uL (150-450); RDW 14.5 % (11.5-15.5); WBC 3.7 k/uL (3.8-10.6)
[2020-09-24 07:57] LABS: C Reactive Protein 54.4 mg/L (<10.0)
[2020-09-24] MEDS ORDERED: ASPIRIN 325 MG TAB PO SCH (09:00)
[2020-09-24] MEDS: ALBUTEROL HFA INHALER INHALATION SCH ×4 (09:16→20:19)
[2020-09-24] MEDS: ASCORBIC ACID 500 MG TAB PO SCH (09:19)
[2020-09-24] MEDS: ENOXAPARIN 40 MG/0.4 ML SYRINGE SQ SCH (09:20)
[2020-09-24] MEDS: ASPIRIN 81 MG PO SCH ×2 (09:20)
[2020-09-24] MEDS: FAMOTIDINE 20 MG TAB PO SCH (09:20)
[2020-09-24] MEDS: dexAMETHasone 2 MG TAB PO SCH (09:20)
[2020-09-24] MEDS: METOPROLOL TARTRATE 25 MG TAB PO SCH ×3 (09:21→21:00)
[2020-09-24] MEDS: ZINC SULFATE 220 MG CAP PO SCH (09:21)
[2020-09-24 09:23] LABS: Band Neutrophils % 3 %; Lymphocytes # (M) 0.59 k/uL (1.0-4.8); Neutrophils % (M) 62 %; Nucleated Red Blood Cells 0 /100 WBC (0-0); Total Cells Counted 100
[2020-09-24] MEDS ORDERED: AMIODARONE 200 MG TAB PO SCH (12:30)
--- NOTE | 2020-09-24 12:35 | P.PN ---
Subjective Progress Note Date: 09/24/20 CHIEF COMPLAINT: A. fib RVR HISTORY OF PRESENT ILLNESS: This is a 70-year-old male who was admitted to the hospital secondary to Covid. Patient remains in atrial fibrillation this morning with a heart rate in the 150s at the time of examination. He remains on a Cardizem drip at 15 mrem an hour. Patient is also receiving metoprolol 25 mg twice a day. Blood pressure 109/61. He is on 2 L nasal cannula with oxygen saturations greater than 92%. Echocardiogram completed revealed ejection fraction 55-60%, trace aortic regurgitation, trace tricuspid regurgitation, and trace mitral regurgitation PHYSICAL EXAM: Thorough physical exam not completed secondary to limited evaluation/examination and due to Covid19 ASSESSMENT: Covid 19 Acute hypoxic respiratory failure Abnormal troponins, secondary to above, no evidence of acute coronary syndrome Paroxysmal atrial fibrillation with RVR History of watchman procedure Hypertension PLAN: No anticoagulation necessary secondary to watchman procedure Continue IV Cardizem at 15 mg an hour. Wean as tolerated Increase metoprolol to 75 mg twice a day Add amiodarone 400 mg twice a day Further recommendations pending patient's course Nurse practitioner note has been reviewed by physician. Signing provider agrees with the documented findings, assessment, and plan of care. Objective - Vital Signs Vital signs: Vital Signs Temp 98.1 F 09/24/20 08:00 Pulse 144 H 09/24/20 08:00 Resp 18 09/24/20 08:00 BP 109/61 09/24/20 08:00 Pulse Ox 96 09/24/20 08:00 Intake & Output 09/23/20 09/24/20 09/24/20 18:59 06:59 18:59 Intake Total 123.25 325 Output Total 1 Balance 122.25 325 Weight 134 kg Intake: Intake, IV Titration 123.25 125 Amount Diltiazem 125 mg In 123.25 125 Sodium Chloride 0.9% 100 ml @ 10 MG/HR 10 mls/hr IV .[id number] [facility] Rx#: [id number] Oral 200 Output: Stool 1 Other: Voiding Method Bedside Commode Bedside Commode # Voids 1 # Bowel Movements 1 - Labs CBC & Chem 7: 09/24/20 07:06 09/24/20 07:06 Labs: Abnormal Lab Results - Last 24 Hours (Table) 09/23/20 09/23/20 09/24/20 Range/Units 12:35 14:52 07:06 WBC (3.8-10.6) k/uL Plt Count (150-450) k/uL Lymphocytes # (Manual) (1.0-4.8) k/uL BUN 32 H (9-20) mg/dL Glucose 135 H (74-99) mg/dL POC Glucose (mg/dL) 132 H (75-99) mg/dL Lactate Dehydrogenase 672 H (313-618) U/L Troponin I 0.068 H* (0.000-0.034) ng/mL C-Reactive Protein 54.4 H (<10.0) mg/L Total Protein 5.8 L (6.3-8.2) g/dL Albumin 3.1 L (3.5-5.0) g/dL HDL Cholesterol 36 L (40-60) mg/dL 09/24/20 Range/Units 07:06 WBC 3.7 L (3.8-10.6) k/uL Plt Count 141 L (150-450) k/uL Lymphocytes # (Manual) 0.59 L (1.0-4.8) k/uL BUN (9-20) mg/dL Glucose (74-99) mg/dL POC Glucose (mg/dL) (75-99) mg/dL Lactate Dehydrogenase (313-618) U/L Troponin I (0.000-0.034) ng/mL C-Reactive Protein (<10.0) mg/L Total Protein (6.3-8.2) g/dL Albumin (3.5-5.0) g/dL HDL Cholesterol (40-60) mg/dL
--- NOTE | 2020-09-24 12:55 | P.PN ---
<Ger Johnson - Last Filed: 09/24/20 12:39> Subjective Progress Note Date: 09/24/20 Hospital Course: Patient is a 70-year-old male with a past medical history significant for hype rtension and atrial fibrillation not on anticoagulation but has implanted watchman's device. He presented to the emergency department this morning with a chief complaint of palpitations accompanied by a fever, generalized weakness and fatigue, epigastric pain, and dyspnea. Patient was seen and fully evaluated in the emergency department resulting in diagnosis of atrial fibrillation with RVR in the 160's along with acute respiratory failure with hypoxia requiring oxygen supplementation. Pt reported he has been experiencing generalized weakness and fatigue along with a fever and loss of appetite beginning 2 days ago. He states prior to coming to the emergency department he awoke in with the feeling that his heart was racing and this was accompanied by epigastric pain described as a hunger-like pain, fever and shortness of breath. Pt reports resolution of epigastric pain and shortness of breath but continues to be febrile, feeling as though his heart is racing and has no appetite. EKG was obtained revealing A. fib RVR with ventricular rate of 158 bpm. Covid 19 virus PCR was POSITIVE. Troponins were found to be elevated at 0.056, 0.065, and 0.068. Chest x-ray showing no acute cardiopulmonary process. Echocardiogram revealed an ejection fraction of 55-60%. Patient was treated for A. fib RVR and started on a Cardizem infusion and admitted under our services with consultation to pulmonology and cardiology. Physical exam: Pt seen and fully evaluated at bedside this morning. He has remained with RVR in the 130s to 150s throughout the night despite oral metoprolol 25 mg twice a day and Cardizem infusion at 15 mg per hour. Metoprolol increased to 75 mg twice daily by cardiology currently ventricular rate 120s to 130s, patient de nies feeling chest pain or shortness of breath. Patient was found to have a coarse cough upon assessment. Upon auscultation of lungs, adventitious lung sounds were noted as patient had diffuse rhonchi bilaterally. Patient reports cough and congestion developed yesterday and has been present throughout the night. Patient reports congestion improves if he is able to get a "good cough." He remains on 2 L O2 via nasal cannula with SpO2 of 95%. Order placed for repeat chest x-ray. Patient denies having a headache, lightheadedness, dizziness, chest pain, palpitations, or experiencing any num bness/tingling/weakness in extremities. He does report mild shortness of breath. General: Non toxic, appears at stated age, patient appears comfortable showing no signs of acute distress at this time. Derm: warm, dry Head: atraumatic, normocephalic, symmetric Eyes: EOMI, no lid lag, anicteric sclera Mouth: no lip lesion, mucus membranes moist Cardiovascular: Irregularly irregular rhythm and tachycardic rate. No murmur. Positive posterior tibial pulses bilaterally. No lower extremity edema. Cap refill less than 2 seconds. Lungs: Respirations even, regular, and unlabored on 2 L O2 via nasal cannula with SpO2 of 93%. Lungs with equal air movement throughout, patient did have diffuse coarse rhonchi with coarse cough this morning. Abdominal: soft, nontender to palpation, no guarding, no appreciable organomegaly Ext: no gross muscle atrophy, no edema, no contractures. Neuro: GCS 15. Speech clear. No focal neuro deficits Psych: Alert, oriented, appropriate affect Assessment and Plan of Care: Atrial fibrillation with RVR -EKG revealing A. fib RVR with ventricular rate of 158 bpm -Echocardiogram revealed an ejection fraction of 55-60%. -Watchman's Device in place. -Continue Cardizem infusion at 15 mg per hour -Lopressor 5 mg IVP 1 dose -Resume daily Lopressor 25 mg twice daily -Continuous telemetry monitoring -Cardiology consult, appreciate recommendations Acute hypoxic respiratory failure secondary to Covid 19 pneumonitis -Chest x-ray negative for acute cardiopulmonary process. -Covid 19 positive on 09/23/20 -Oxygenation to be administered and titrated as needed to maintain SPO2 equal to or greater than 92%, wean once patient able, remains on 2 L O2 via nasal cannula. -Remdesivir -Dexamethasone 6 mg daily, day 2 of 10 for steroid -Zinc, vitamin C, vitamin D, and melatonin -Bronchodilator protocol with MDIs as needed for SOB and/or wheezing -Incentive Spirometry -Pulmonology following, appreciate further recommendations. -Repeat chest x-ray ordered. Elevated troponin, likely secondary to demand ischemia resulting from prolonged persistent RVR. -Troponins found to be elevated at 0.056, 0.065, and 0.068 -EKG revealing A. fib RVR with ventricular rate of 158 bpm. -Echocardiogram revealed an ejection fraction of 55-60%. -Continuous telemetry monitoring -Treatment of underlying cause, please see assessment and plan of care for A. fib with RVR -Continue daily metoprolol -Cardiology following, appreciate further recommendations. Thrombocytopenia, improved -Thrombocytopenia with platelet count of 141,000 -Possibly secondary to recurrent infection with Covid 19 virus. -We will continue to monitor with repeat a.m. labs. Prerenal azotemia -BUN 32, creatinine 1.12, and GFR of 66. -Possibly secondary to current infection with Covid 19 virus. Encourage oral hydration and continue to monitor closely. -We will continue to monitor with repeat a.m. labs. Hypertension -Monitor vital signs and continue daily medication management. CODE STATUS: Full code DVT prophylaxis: Heparin Discussed with: Patient and RN Anticipated discharge date: Clinical course to determine Anticipated discharge place: Home A total of 45 minutes was spent on the care of this complex patient more than 50% of the time was spent in counseling and care coordination. Objective - Vital Signs Vital signs: Vital Signs Temp 98.1 F 09/24/20 08:00 Pulse 144 H 09/24/20 08:00 Resp 18 09/24/20 08:00 BP 109/61 09/24/20 08:00 Pulse Ox 96 09/24/20 08:00 Intake & Output 09/23/20 09/24/20 09/24/20 18:59 06:59 18:59 Intake Total 123.25 325 Output Total 1 Balance 122.25 325 Weight 134 kg Intake: Intake, IV Titration 123.25 125 Amount Diltiazem 125 mg In 123.25 125 Sodium Chloride 0.9% 100 ml @ 10 MG/HR 10 mls/hr IV .[id number] [facility] Rx#: [id number] Oral 200 Output: Stool 1 Other: Voiding Method Bedside Commode # Voids 1 # Bowel Movements 1 - Labs CBC & Chem 7: 09/24/20 07:06 09/24/20 07:06 Labs: Abnormal Lab Results - Last 24 Hours (Table) 09/23/20 09/23/20 09/23/20 Range/Units 10:07 10:07 10:07 WBC (3.8-10.6) k/uL Plt Count (150-450) k/uL Lymphocytes # (Manual) (1.0-4.8) k/uL D-Dimer 0.69 H (<0.60) mg/L FEU BUN (9-20) mg/dL Glucose (74-99) mg/dL POC Glucose (mg/dL) (75-99) mg/dL Lactate Dehydrogenase 638 H (313-618) U/L Troponin I 0.065 H* (0.000-0.034) ng/mL C-Reactive Protein 52.6 H (<10.0) mg/L Total Protein (6.3-8.2) g/dL Albumin (3.5-5.0) g/dL HDL Cholesterol (40-60) mg/dL 09/23/20 09/23/20 09/24/20 Range/Units 12:35 14:52 07:06 WBC (3.8-10.6) k/uL Plt Count (150-450) k/uL Lymphocytes # (Manual) (1.0-4.8) k/uL D-Dimer (<0.60) mg/L FEU BUN 32 H (9-20) mg/dL Glucose 135 H (74-99) mg/dL POC Glucose (mg/dL) 132 H (75-99) mg/dL Lactate Dehydrogenase 672 H (313-618) U/L Troponin I 0.068 H* (0.000-0.034) ng/mL C-Reactive Protein 54.4 H (<10.0) mg/L Total Protein 5.8 L (6.3-8.2) g/dL Albumin 3.1 L (3.5-5.0) g/dL HDL Cholesterol 36 L (40-60) mg/dL 09/24/20 Range/Units 07:06 WBC 3.7 L (3.8-10.6) k/uL Plt Count 141 L (150-450) k/uL Lymphocytes # (Manual) 0.59 L (1.0-4.8) k/uL D-Dimer (<0.60) mg/L FEU BUN (9-20) mg/dL Glucose (74-99) mg/dL POC Glucose (mg/dL) (75-99) mg/dL Lactate Dehydrogenase (313-618) U/L Troponin I (0.000-0.034) ng/mL C-Reactive Protein (<10.0) mg/L Total Protein (6.3-8.2) g/dL Albumin (3.5-5.0) g/dL HDL Cholesterol (40-60) mg/dL <DilipMaribel Sheri - Last Filed: 09/24/20 14:25> Objective - Vital Signs Vital signs: Vital Signs Temp 98.2 F 09/24/20 12:00 Pulse 99 09/24/20 12:00 Resp 16 09/24/20 12:00 BP 116/81 09/24/20 12:00 Pulse Ox 96 09/24/20 12:00 Intake & Output 09/23/20 09/24/20 09/24/20 18:59 06:59 18:59 Intake Total 123.25 325 Output Total 1 Balance 122.25 325 Weight 134 kg Intake: Intake, IV Titration 123.25 125 Amount Diltiazem 125 mg In 123.25 125 Sodium Chloride 0.9% 100 ml @ 10 MG/HR 10 mls/hr IV .[id number] [facility] Rx#: [id number] Oral 200 Output: Stool 1 Other: Voiding Method Bedside Commode Bedside Commode # Voids 1 # Bowel Movements 1 - Labs CBC & Chem 7: 09/24/20 07:06 09/24/20 07:06 Labs: Abnormal Lab Results - Last 24 Hours (Table) 09/23/20 09/24/20 09/24/20 Range/Units 14:52 07:06 07:06 WBC 3.7 L (3.8-10.6) k/uL Plt Count 141 L (150-450) k/uL Lymphocytes # (Manual) 0.59 L (1.0-4.8) k/uL BUN 32 H (9-20) mg/dL Glucose 135 H (74-99) mg/dL POC Glucose (mg/dL) 132 H (75-99) mg/dL Lactate Dehydrogenase 672 H (313-618) U/L C-Reactive Protein 54.4 H (<10.0) mg/L Total Protein 5.8 L (6.3-8.2) g/dL Albumin 3.1 L (3.5-5.0) g/dL HDL Cholesterol 36 L (40-60) mg/dL Assessment and Plan Assessment: Patient seen and examined independently. Patient was also seen by Ger Johnson NP and case was discussed. I am in agreement with subjective, physical exam, assessment and plan as written above and amended below. States that his back is killing him as he typically takes Oxycodone . Mild SOB. No chest pain, Denies palpitations. General: ill appearing, no distress, appears at stated age Derm: warm, dry Head: atraumatic, normocephalic, symmetric Eyes: EOMI, no lid lag, anicteric sclera Mouth: no lip lesion, mucus membranes moist Cardiovascular: S1S2 irreg tachy, no murmur, positive posterior tibial pulse bilateral, Lungs: Course bs bilateral, no accessory muscle use Abdominal: soft, nontender to palpation, no guarding, no appreciable organomegaly Ext: no gross muscle atrophy, no edema, no contractures Neuro: CN II-XI grossly intact, no focal neuro deficits Psych: Alert, oriented, appropriate affect A fib wtih RVR - D/W cardio and increase Lopressor to 75mg BID, cardizme gtt to continue., consider Amio Chronic Back Pain - Patient takes his oxycodone 20mg at home will resume - encourage out of bed as soon as heart rate is controlled COVID-19 Pneumonitis - Dexamethasone - Remdesivir - Follow inflammatory labs - Consult Pulm
[2020-09-24] MEDS: AMIODARONE 200 MG TAB PO SCH ×2 (13:01→21:00)
--- NOTE | 2020-09-24 16:52 | P.CNPUL ---
History of Present Illness Consult date: 09/24/20 Requesting physician: Benny Matthew Reason for consult: pneumonia Chief complaint: Rapid heartbeat. History of present illness: This is a 70-year-old white male, known history of hypertension, paroxysmal atrial fibrillation, patient presented to the ER yesterday with chief complaint of rapid heart beat and palpitation. Patient also had a low-grade fever, generalized weakness and fatigue. His chest x-ray showed no evidence of infiltrate, however the patient had a positive PCR for covid 19. Patient did not truly have significant constitutional symptoms, he felt that his symptoms were most likely related to his rapid heart beat, and he had some generalized weakness and fatigue. At any rate considering his positive atrial fibrillation and RVR, considering his positive Covid 19 PCR, I was asked to see patient on consultation. ECG showed slight leukopenia with W Joel of 17.7. Electrolytes were normal. There profile was normal. Troponin was a bit elevated. LDH was 672 and C-reactive protein was 52.6. Patient had minimal shortness of breath, no cough, no no chest pain, no hemoptysis. Review of Systems Constitutional: Low-grade fever which was noted in the ER, generalized weakness. HEENT: Negative. Pulmonary: Minimal shortness of breath on exertion. Cardiac: Rapid heartbeat/palpitations. No chest pain. No orthopnea no PND. GI: Negative. Genitourinary: Negative. [place] skeletal: Negative. Skin: Negative. Hematologic: Negative. Psychiatric: Negative. Neurologic: Negative. Endocrine: Negative. Past Medical History Past Medical History: Atrial Fibrillation, Hypertension History of Any Multi-Drug Resistant Organisms: None Reported Past Surgical History: Joint Replacement, Orthopedic Surgery, Tonsillectomy Additional Past Surgical History / Comment(s): WATCHMAN, MULTIPLE ORTHO SX Past Anesthesia/Blood Transfusion Reactions: No Reported Reaction Past Psychological History: No Psychological Hx Reported Smoking Status: Former smoker Past Alcohol Use History: None Reported Past Drug Use History: None Reported - Past Family History Mother Family Medical History: Coronary Artery Disease (CAD) Medications and Allergies Home Medications Medication Instructions Recorded Confirmed Type Aspirin EC [Ecotrin Low Dose] 81 mg PO DAILY 04/06/20 09/23/20 History Benazepril [Lotensin] 10 mg PO DAILY 04/06/20 09/23/20 History Econazole Nitrate [Econazole 1 applic TOPICAL DAILY PRN 10/15/20 04/03/21 History Nitrate 1%] Fluticasone Nasal [place] [Flonase 2 spr EA NOSTRIL DAILY PRN 04/06/20 09/23/20 History Nasal [place]] Furosemide [Lasix] 80 mg PO BID PRN 04/06/20 09/23/20 History HYDROcodone/APAP 10-325MG [[place] 1 tab PO TID PRN 04/06/20 09/23/20 History 10-325] Hydrocortisone Cream 1 applic TOPICAL BID PRN 04/06/20 09/23/20 History [Hydrocortisone 2.5% Cream] Metoprolol Tartrate [Lopressor] 25 mg PO BID 04/06/20 09/23/20 History Potassium Chloride 8 meq PO DAILY PRN 04/06/20 09/23/20 History Amoxicillin 500 mg PO Q8H 09/23/20 09/23/20 History oxyCODONE HCL [oxyCODONE HCL (IR)] 20 mg PO QID PRN 09/23/20 09/23/20 History Allergies Allergy/AdvReac Type Severity Reaction Status Date / Time No Known Allergies Allergy Verified 09/23/20 04:34 Physical Exam Vitals: Vital Signs Temp Pulse Resp BP Pulse Ox 09/24/20 14:00 99 09/24/20 12:00 98.2 F 99 16 116/81 96 09/24/20 08:00 98.1 F 144 H 18 109/61 96 09/24/20 04:45 109 H 17 129/68 94 L 09/23/20 23:25 98.1 F 111 H 19 95/65 96 09/23/20 20:25 98.5 F 145 H 18 118/68 92 L Intake and Output 09/24/20 09/24/20 09/24/20 06:59 14:59 22:59 Intake Total 125 160 Balance 125 160 Intake: Intake, IV Titration 125 160 Amount Diltiazem 125 mg In 125 Sodium Chloride 0.9% 100 ml @ 10 MG/HR 10 mls/hr IV .[id number] [facility] Rx#: [id number] Sodium Chloride 0.9% 1, 160 000 ml @ 20 mls/hr IV . Q24H [facility] Rx#:[id number] Other: Voiding Method Bedside Commode Bedside Commode # Voids 1 # Bowel Movements 1 Weight 134 kg Physical Exam: Revealed 70-year-old white male in no distress. Head: Atraumatic, normocephalic. HEENT:[Neck is supple.] [No neck masses.] [No thyromegaly.] [No JVD.] Chest: [Clear throughout, no crackles, no rhonchi, no wheezes.] Cardiac Exam: Irregular irregular rhythm, no S3 gallop, 2/6 systolic murmur throughout the precordium. Abdomen: [Soft, nontender, no megaly, no rebound, no guarding, normal bowel sounds.] Extremities: [No clubbing, no edema, no cyanosis.] Neurological Exam: [No focal neurologic deficit.] Alert and oriented 3. Psychiatric: Normal mood, affect and normal mental status examination. Skin: No rashes. Results - Laboratory Findings CBC and BMP: 09/24/20 07:06 09/24/20 07:06 PT/INR, D-dimer PT 10.6 sec (9.0-12.0) 09/23/20 04:52 INR 1.0 (<1.2) 09/23/20 04:52 D-Dimer 0.69 mg/L FEU (<0.60) H 09/23/20 10:07 Abnormal lab findings: Abnormal Labs 09/23/20 09/23/20 09/23/20 04:52 04:52 04:52 WBC Plt Count 125 L Lymphocytes # 0.7 L Lymphocytes # (Manual) D-Dimer Sodium 135 L BUN 22 H Glucose 118 H POC Glucose (mg/dL) Calcium 8.1 L AST 62 H Lactate Dehydrogenase Troponin I 0.056 H* C-Reactive Protein Total Protein Albumin HDL Cholesterol Coronavirus (PCR) 09/23/20 09/23/20 09/23/20 04:52 10:07 10:07 WBC Plt Count Lymphocytes # Lymphocytes # (Manual) D-Dimer 0.69 H Sodium BUN Glucose POC Glucose (mg/dL) Calcium AST Lactate Dehydrogenase Troponin I 0.065 H* C-Reactive Protein Total Protein Albumin HDL Cholesterol Coronavirus (PCR) Detected A 09/23/20 09/23/20 09/23/20 10:07 12:35 14:52 WBC Plt Count Lymphocytes # Lymphocytes # (Manual) D-Dimer Sodium BUN Glucose POC Glucose (mg/dL) 132 H Calcium AST Lactate Dehydrogenase 638 H Troponin I 0.068 H* C-Reactive Protein 52.6 H Total Protein Albumin HDL Cholesterol Coronavirus (PCR) 09/24/20 09/24/20 07:06 07:06 WBC 3.7 L Plt Count 141 L Lymphocytes # Lymphocytes # (Manual) 0.59 L D-Dimer Sodium BUN 32 H Glucose 135 H POC Glucose (mg/dL) Calcium AST Lactate Dehydrogenase 672 H Troponin I C-Reactive Protein 54.4 H Total Protein 5.8 L Albumin 3.1 L HDL Cholesterol 36 L Coronavirus (PCR) - Diagnostic Findings Chest x-ray: image reviewed (No evidence of active disease noted on the chest x- ray.) Assessment and Plan Assessment: Impression: Atrial fibrillation with RVR, patient is known to have history of cardiac arrhythmia not normally on anticoagulation therapy, Covid 19 infection, with mild hypoxic respiration failure on presentation with O2 saturation of 87%. I strongly suspect that there is some pneumonic process not clearly seen on the chest x-ray, but most likely will be seen on CT of the chest. History of hypertension. Recommendation: Continue REM Continue Decadron. Continue anticoagulation therapy. And that will be for his underlying atrial fibrillation with RVR and for his Covid 19 infection. Continue Cardizem. Repeat chest x-ray in a.m., consider CT of the chest and the patient continues to have relatively low O2 saturations. Continue to monitor inflammatory markers. Continue the Covid 19 cocktail. We will continue to follow. Time with Patient: Greater than 30
[2020-09-24] MEDS ORDERED: REMDESIVIR 100 MG in SODIUM CHLORIDE 0.9% 250 ML IVPB SCH (18:00)
[2020-09-24] MEDS: REMDESIVIR 100 MG in SODIUM CHLORIDE 0.9% 250 ML IVPB SCH (18:25)
[2020-09-25] MEDS: DILTIAZEM 125 MG in SODIUM CHLORIDE 0.9% 100 ML IV SCH ×2 (03:11→13:11)
[2020-09-25] MEDS: ENOXAPARIN 40 MG/0.4 ML SYRINGE SQ SCH (08:16)
[2020-09-25] MEDS: ZINC SULFATE 220 MG CAP PO SCH (08:16)
[2020-09-25] MEDS: dexAMETHasone 2 MG TAB PO SCH (08:16)
[2020-09-25] MEDS: FAMOTIDINE 20 MG TAB PO SCH (08:16)
[2020-09-25 08:17] LABS: HCT 47.6 % (39.0-53.0); HGB 15.8 gm/dL (13.0-17.5); MCH 30.3 pg (25.0-35.0); MCHC 33.2 g/dL (31.0-37.0); MCV 91.3 fL (80.0-100.0); Mean Platelet Volume 7.8; Platelet Count 173 k/uL (150-450); RBC 5.21 m/uL (4.30-5.90); RDW 14.2 % (11.5-15.5); WBC 5.4 k/uL (3.8-10.6)
[2020-09-25] MEDS: SODIUM CHLORIDE 0.9% 1,000 ML IV SCH (08:17)
[2020-09-25] MEDS: ASCORBIC ACID 500 MG TAB PO SCH (08:17)
[2020-09-25] MEDS: AMIODARONE 200 MG TAB PO SCH ×2 (08:17→21:00)
[2020-09-25] MEDS: METOPROLOL TARTRATE 25 MG TAB PO SCH ×2 (08:17→21:01)
[2020-09-25] MEDS: ASPIRIN 81 MG PO SCH ×2 (08:17→08:18)
[2020-09-25 08:30] LABS: C Reactive Protein 31.4 mg/L (<10.0); Calcium 8.9 mg/dL (8.4-10.2); Magnesium 2.3 mg/dL (1.6-2.3); Potassium 4.9 mmol/L (3.5-5.1)
[2020-09-25] MEDS ORDERED: SODIUM CHLORIDE 0.9% 1,000 ML IV SCH (09:00)
[2020-09-25] MEDS: ALBUTEROL HFA INHALER INHALATION SCH ×4 (09:29→20:21)
--- NOTE | 2020-09-25 10:11 | XR ---
EXAMINATION TYPE: XR chest 1V portable DATE OF EXAM: 09/25/2020 COMPARISON: 09/23/2020 HISTORY: Cough TECHNIQUE: Single frontal view of the chest is obtained. FINDINGS: Right lower lobe infiltrate is seen. Left lung clear. Postsurgical change left shoulder. N o pneumothorax. Heart size stable. No overt failure. Chronic rib deformities noted. IMPRESSION: Right lower lobe infiltrate with elevated hemidiaphragm. Tiny effusion not excluded.
--- NOTE | 2020-09-25 11:03 | P.PN ---
<Ger Johnson - Last Filed: 09/25/20 10:42> Subjective Progress Note Date: 09/25/20 Hospital Course: Patient is a 70-year-old male with a past medical history significant for hype rtension and atrial fibrillation not on anticoagulation but has implanted watchman's device. He presented to the emergency department this morning with a chief complaint of palpitations accompanied by a fever, generalized weakness and fatigue, epigastric pain, and dyspnea. Patient was seen and fully evaluated in the emergency department resulting in diagnosis of atrial fibrillation with RVR in the 160's along with acute respiratory failure with hypoxia requiring oxygen supplementation. Pt reported he has been experiencing generalized weakness and fatigue along with a fever and loss of appetite beginning 2 days ago. He states prior to coming to the emergency department he awoke in with the feeling that his heart was racing and this was accompanied by epigastric pain described as a hunger-like pain, fever and shortness of breath. Pt reports resolution of epigastric pain and shortness of breath but continues to be febrile, feeling as though his heart is racing and has no appetite. EKG was obtained revealing A. fib RVR with ventricular rate of 158 bpm. Covid 19 virus PCR was POSITIVE. Troponins were found to be elevated at 0.056, 0.065, and 0.068. Chest x-ray showing no acute cardiopulmonary process. Echocardiogram revealed an ejection fraction of 55-60%. Patient was treated for A. fib RVR and started on a Cardizem infusion and admitted under our services with consultation to pulmonology and cardiology. Repeat chest x-ray completed 09/25/20 positive for right lower lobe infiltrate with possible tiny effusion. Physical exam: 09/25/20: Pt seen and fully evaluated at bedside this morning. Patient reports feeling slightly better this morning, but continues to report mild shortness of breath which worsens with minimal exertion. His heart rate is much better controlled since increase of metoprolol to 75 mg twice daily and initiation of amiodarone yesterday morning. Patient remains on Cardizem infusion at 15 mg per hour. He continues to have a coarse cough but denies having any phlegm production. Repeat chest x-ray completed this morning was positive for right lower lobe infiltrate with possible tiny effusion. Inflammatory markers are decreasing with D-dimer 0.042, LDH 671, and CRP 31.4. CBC is unremarkable. Patient denies having a headache, lightheadedness, dizziness, chest pain, palpitations, or experiencing any numbness/tingling/weakness in extremities. He does report mild shortness of breath. Vital signs reviewed and stable this morning with BP 123/73, heart rate 83, temp 97.7, and SpO2 of 94% on 2 L. General: Non toxic, appears at stated age, patient appears comfortable showing no signs of acute distress at this time. Derm: warm, dry Head: atraumatic, normocephalic, symmetric Eyes: EOMI, no lid lag, anicteric sclera Mouth: no lip lesion, mucus membranes moist Cardiovascular: Irregularly irregular rhythm and tachycardic rate. No murmur. Positive posterior tibial pulses bilaterally. No lower extremity edema. Cap refill less than 2 seconds. Lungs: Respirations even, regular, and unlabored on 2 L O2 via nasal cannula with SpO2 of 93%. Lungs with equal air movement throughout, patient continues to have diffuse coarse rhonchi with coarse cough. Abdominal: soft, nontender to palpation, no guarding, no appreciable organomegaly Ext: no gross muscle atrophy, no edema, no contractures. Neuro: GCS 15. Speech clear. No focal neuro deficits Psych: Alert, oriented, appropriate affect Assessment and Plan of Care: Acute hypoxic respiratory failure secondary to Covid 19 pneumonitis -Chest x-ray negative for acute cardiopulmonary process. -Repeat chest x-ray completed 09/25/20 positive for right lower lobe infiltrate with possible tiny effusion. -Covid 19 positive on 09/23/20 -Oxygenation to be administered and titrated as needed to maintain SPO2 equal to or greater than 92%, wean oxygen once patient is able, remains on 2 L O2 via nasal cannula. -Remdesivir, day 3 of 5 -Dexamethasone 6 mg daily, day - and melatonin -Bronchodilator protocol with MDIs as needed for SOB and/or wheezing -Incentive Spirometry -Pulmonology following, appreciate further recommendations. Acute Kidney Injury -BUN 41, creatinine 1.46, and GFR 47. This is elevated from initial labs showing a BUN 22, creatinine 1.10, and GFR of 67. -Elevation in renal function likely secondary to demand ischemia resulting from prolonged RVR. -Prolonged tachyarrhythmia resulting from A. fib with RVR has now been controlled, we will provide patient with gentle hydration with 0.9% normal saline at 75 mL's per hour 13 hours and continue to monitor renal function closely with repeat a.m. labs. Atrial fibrillation with RVR, rate controlled -Rate controlled since initiation of amiodarone with ventricular rate ranging from 90-120's. Remains on Cardizem infusion a 15 mg per hour, and metoprolol 75 mg twice daily. Likely transition Cardizem infusion to oral Cardizem. -EKG revealing A. fib RVR with ventricular rate of 158 bpm -Echocardiogram revealed an ejection fraction of 55-60%. -Watchman's Device in place. -Continuous telemetry monitoring -Cardiology following, appreciate further recommendations Elevated troponin, likely secondary to demand ischemia resulting from prolonged persistent RVR. -Troponins found to be elevated at 0.056, 0.065, and 0.068 -EKG revealing A. fib RVR with ventricular rate of 158 bpm. -Echocardiogram revealed an ejection fraction of 55-60%. -Continuous telemetry monitoring -Treatment of underlying cause, please see assessment and plan of care for A. f ib with RVR -Continue daily metoprolol -Cardiology following, appreciate further recommendations. Thrombocytopenia, resolved -Platelets now 173,000 Hypertension, controlled -Monitor vital signs and continue daily medication management. CODE STATUS: Full code DVT prophylaxis: Heparin Discussed with: Patient and RN Anticipated discharge date: Clinical course to determine Anticipated discharge place: Home A total of 45 minutes was spent on the care of this complex patient more than 50% of the time was spent in counseling and care coordination. Objective - Vital Signs Vital signs: Vital Signs Temp 97.5 F L 09/25/20 02:15 Pulse 90 09/25/20 02:15 Resp 19 09/25/20 02:15 BP 106/74 09/25/20 02:15 Pulse Ox 95 09/25/20 02:15 Intake & Output 09/24/20 09/25/20 09/25/20 18:59 06:59 18:59 Intake Total 420 115.75 Output Total 150 Balance 420 -34.25 Weight 134 kg Intake: IV 10 20 Invasive Line 3 10 20 Intake, IV Titration 285 95.75 Amount Diltiazem 125 mg In 125 95.75 Sodium Chloride 0.9% 100 ml @ 10 MG/HR 10 mls/hr IV .[id number] [facility] Rx#: [id number] Sodium Chloride 0.9% 1, 160 000 ml @ 20 mls/hr IV . Q24H [facility] Rx#:[id number] Oral 125 Output: Urine 150 Other: Voiding Method Bedside Commode Bedside Commode # Voids 1 # Bowel Movements 1 - Labs CBC & Chem 7: 09/25/20 07:43 09/25/20 07:43 Labs: Abnormal Lab Results - Last 24 Hours (Table) 09/24/20 09/25/20 Range/Units 07:06 07:43 Lymphocytes # (Manual) 0.59 L (1.0-4.8) k/uL BUN 41 H (9-20) mg/dL Creatinine 1.46 H (0.66-1.25) mg/dL Glucose 151 H (74-99) mg/dL Lactate Dehydrogenase 671 H (313-618) U/L C-Reactive Protein 31.4 H (<10.0) mg/L <Maribel Cherry A - Last Filed: 09/25/20 13:35> Objective - Vital Signs Vital signs: Vital Signs Temp 97.4 F L 09/25/20 12:00 Pulse 101 H 09/25/20 12:00 Resp 16 09/25/20 12:00 BP 108/77 09/25/20 12:00 Pulse Ox 96 09/25/20 12:00 Intake & Output 09/24/20 09/25/20 09/25/20 18:59 06:59 18:59 Intake Total 420 115.75 135 Output Total 150 1 Balance 420 -34.25 134 Weight 134 kg Intake: IV 10 20 10 Invasive Line 3 10 20 10 Intake, IV Titration 285 95.75 125 Amount Diltiazem 125 mg In 125 95.75 125 Sodium Chloride 0.9% 100 ml @ 10 MG/HR 10 mls/hr IV .[id number] [facility] Rx#: [id number] Sodium Chloride 0.9% 1, 160 000 ml @ 20 mls/hr IV . Q24H [facility] Rx#:[id number] Oral 125 Output: Urine 150 Stool 1 Other: Voiding Method Bedside Commode Bedside Commode Bedside Commode # Voids 1 # Bowel Movements 1 - Labs CBC & Chem 7: 09/25/20 07:43 09/25/20 07:43 Labs: Abnormal Lab Results - Last 24 Hours (Table) 09/25/20 Range/Units 07:43 BUN 41 H (9-20) mg/dL Creatinine 1.46 H (0.66-1.25) mg/dL Glucose 151 H (74-99) mg/dL Lactate Dehydrogenase 671 H (313-618) U/L C-Reactive Protein 31.4 H (<10.0) mg/L Assessment and Plan Assessment: Patient seen and examined independently. Patient was also seen by Ger Johnson NP and case was discussed. I am in agreement with subjective, physical exam, assessment and plan as written above and amended below. Denies chest pain, shortness of breath is improving. No other complaints currently. General: Ill-appearing, no distress, appears at stated age Derm: warm, dry Head: atraumatic, normocephalic, symmetric Eyes: EOMI, no lid lag, anicteric sclera Mouth: no lip lesion, mucus membranes moist Cardiovascular: S1-S2 regular, no murmur, positive posterior tibial pulse bilateral, Lungs: Rhonchi right base , no accessory muscle use Abdominal: soft, nontender to palpation, no guarding, no appreciable organomegaly Ext: no gross muscle atrophy, no edema, no contractures Neuro: CN II-XI grossly intact, no focal neuro deficits Psych: Alert, oriented, appropriate affect Patient with questions about medical power of health care attorney and his nephew being paid to take care of him. Placed referral for social work as well as patient advocate. Both were notified by myself to see the patient.
--- NOTE | 2020-09-25 15:47 | P.PN ---
Subjective This is a 70-year-old male who was admitted to the hospital secondary to Covid- 19. We have been consulted for new onset atrial fibrillation with RVR and elevated troponin. Patient remains in atrial fibrillation and medications have been adjusted for rate control. Patient was started on Cardizem drip, this morning at 10mg an hour. Patient is also receiving metoprolol 75 mg twice a day. Blood pressure 123/73 and 108/77, HR 80s-100s. He is on 2 L nasal cannula with oxygen saturations greater than 92%. Echocardiogram completed on 09/23/2020 revealed ejection fraction 55-60%, trace aortic regurgitation, trace tricuspid regurgitation, and trace mitral regurgitation. Laboratory reviewed, WBC 5.4, hemoglobin 15.8, platelets 173, d-dimer 0.42, sodium 139, potassium 4.9, serum creatinine 1.6, BUN 41. PHYSICAL EXAM: Patient alert and oriented x 3, no acute distress Thorough physical exam not completed secondary to limited evaluation/examination and due to Covid19 ASSESSMENT: Covid 19 Acute hypoxic respiratory failure Abnormal troponins, peaked at 0.06, most likely realted to demand ischemia from prolonged atrial fibrillation with RVR, no evidence of acute coronary syndrome Acute Kidney Injury Paroxysmal atrial fibrillation with RVR History of watchman procedure Hypertension PLAN: No anticoagulation necessary secondary to watchman procedure Cardizem drip to 5mg/hr and wean as tolerated. Continue metoprolol 75 mg twice a day Patient started amiodarone on 400 mg twice a day Further recommendations pending patient's course Nurse practitioner note has been reviewed by physician. Signing provider agrees with the documented findings, assessment, and plan of care. Objective - Vital Signs Vital signs: Vital Signs Temp 97.4 F L 09/25/20 12:00 Pulse 101 H 09/25/20 12:00 Resp 16 09/25/20 12:00 BP 108/77 09/25/20 12:00 Pulse Ox 96 09/25/20 12:00 Intake & Output 09/24/20 09/25/20 09/25/20 18:59 06:59 18:59 Intake Total 420 115.75 135 Output Total 150 1 Balance 420 -34.25 134 Weight 134 kg Intake: IV 10 20 10 Invasive Line 3 10 20 10 Intake, IV Titration 285 95.75 125 Amount Diltiazem 125 mg In 125 95.75 125 Sodium Chloride 0.9% 100 ml @ 10 MG/HR 10 mls/hr IV .[id number] [facility] Rx#: [id number] Sodium Chloride 0.9% 1, 160 000 ml @ 20 mls/hr IV . Q24H [facility] Rx#:[id number] Oral 125 Output: Urine 150 Stool 1 Other: Voiding Method Bedside Commode Bedside Commode Bedside Commode # Voids 1 # Bowel Movements 1 - Labs CBC & Chem 7: 09/25/20 07:43 09/25/20 07:43 Labs: Abnormal Lab Results - Last 24 Hours (Table) 09/25/20 Range/Units 07:43 BUN 41 H (9-20) mg/dL Creatinine 1.46 H (0.66-1.25) mg/dL Glucose 151 H (74-99) mg/dL Lactate Dehydrogenase 671 H (313-618) U/L C-Reactive Protein 31.4 H (<10.0) mg/L
[2020-09-25] MEDS: REMDESIVIR 100 MG in SODIUM CHLORIDE 0.9% 250 ML IVPB SCH (17:30)
--- NOTE | 2020-09-25 18:55 | P.PN ---
Subjective Progress Note Date: 09/25/20 Principal diagnosis: COVID 19 infection. Atrial fibrillation. This is a 70-year-old white male, known history of hypertension, paroxysmal atrial fibrillation, patient presented to the ER yesterday with chief complaint of rapid heart beat and palpitation. Patient also had a low-grade fever, generalized weakness and fatigue. His chest x-ray showed no evidence of infiltrate, however the patient had a positive PCR for covid 19. Patient did not truly have significant constitutional symptoms, he felt that his symptoms were most likely related to his rapid heart beat, and he had some generalized weakness and fatigue. At any rate considering his positive atrial fibrillation and RVR, considering his positive Covid 19 PCR, I was asked to see patient on consultation. ECG showed slight leukopenia with W Joel of 17.7. Electrolytes were normal. There profile was normal. Troponin was a bit elevated. LDH was 672 and C-reactive protein was 52.6. Patient had minimal shortness of breath, no cough, no no chest pain, no hemoptysis. Progress note dated 09/25/2020. 70-year-old male, with history of hypertension, and paroxysmal atrial fibrillation, who presented to the emergency department with complaints of rapid heartbeat, palpitations. He was also feeling weak. In addition, he had a low- grade fever, with fatigue and weakness. Although his chest x-ray appeared to be relatively normal, he did test positive for coronavirus infection. Currently, the patient appears to be doing relatively well. He is on 2 L nasal cannula. Saturations are 96-98%. He is currently afebrile. White count 5.4, hemoglobin 15.8, hematocrit 47.6, and platelet count 173,000. D-dimer is 0.42. Sodium 139, potassium 4.9, chlorides 102, CO2 30, anion gap 7, BUN 41, and creatinine 1.46. Chest x-ray suggested a right lower lobe infiltrate with elevated hemidiaphragm. Objective - Vital Signs Vital signs: Vital Signs Temp 97.4 F L 09/25/20 16:00 Pulse 90 09/25/20 16:00 Resp 16 09/25/20 16:00 BP 110/68 09/25/20 16:00 Pulse Ox 96 09/25/20 16:00 Intake & Output 09/24/20 09/25/20 09/25/20 18:59 06:59 18:59 Intake Total 420 115.75 2115 Output Total 150 802 Balance 420 -34.25 1313 Weight 134 kg Intake: IV 10 20 20 Invasive Line 3 10 20 20 Intake, IV Titration 285 95.75 975 Amount Diltiazem 125 mg In 125 95.75 125 Sodium Chloride 0.9% 100 ml @ 10 MG/HR 10 mls/hr IV .[id number] [facility] Rx#: [id number] Remdesivir 100 mg In 250 Sodium Chloride 0.9% 250 ml @ 250 mls/hr IVPB DAILY@1800 [facility] Rx#: [id number] Sodium Chloride 0.9% 1, 160 000 ml @ 20 mls/hr IV . Q24H [facility] Rx#:[id number] Sodium Chloride 0.9% 1, 600 000 ml @ 75 mls/hr IV . [id number] [facility] Rx#:[id number] Oral 125 1120 Output: Urine 150 800 Stool 2 Other: Voiding Method Bedside Commode Bedside Commode Bedside Commode # Voids 1 # Bowel Movements 1 - Exam No acute distress, oriented 3. Nasal O2 at 3 L/m. No respiratory distress. No conversational dyspnea. HEENT examination is grossly unremarkable. Neck supple. Full range of motion. No adenopathy thyromegaly or neck vein distention. Cardiovascular examination reveals an irregular rhythm and rate. S1-S2 normal. No S3 or S4. A soft systolic murmur is noted. Lungs reveal mostly clear breath sounds. A few scattered mild rhonchi. No wheezes or crackles.. Abdomen soft bowel sounds are heard. No masses or tenderness. Extremities are intact. No cyanosis clubbing or edema. Skin is without rash or lesion. Neurologic examination is brief but nonfocal. - Labs CBC & Chem 7: 09/25/20 07:43 09/25/20 07:43 Labs: Abnormal Lab Results - Last 24 Hours (Table) 09/25/20 Range/Units 07:43 BUN 41 H (9-20) mg/dL Creatinine 1.46 H (0.66-1.25) mg/dL Glucose 151 H (74-99) mg/dL Lactate Dehydrogenase 671 H (313-618) U/L C-Reactive Protein 31.4 H (<10.0) mg/L Assessment and Plan Assessment: Atrial fibrillation with RVR. COVID 19 infection, with minimal respiratory issues at this time. History of hypertension. History of atrial fibrillation. Plan: Plan dated 09/25/2020. Medications are reviewed. The patient probably does not need REM. Currently, the patient is on vitamin C, vitamin D3, zinc, Decadron, and Lovenox. Ad ditional recommendations and suggestions are forthcoming. Prognosis is guarded. Currently, the patient's having minimal pulmonary complaints. Hopefully that continues during this hospitalization. We will continue to follow make recommendations were appropriate. Time with Patient: Less than 30
[2020-09-26] MEDS: DILTIAZEM 125 MG in SODIUM CHLORIDE 0.9% 100 ML IV SCH ×3 (03:57→22:22)
[2020-09-26] MEDS: ALBUTEROL HFA INHALER INHALATION SCH ×4 (07:43→20:04)
[2020-09-26] MEDS: ASCORBIC ACID 500 MG TAB PO SCH (09:09)
[2020-09-26] MEDS: dexAMETHasone 2 MG TAB PO SCH (09:09)
[2020-09-26] MEDS: ENOXAPARIN 40 MG/0.4 ML SYRINGE SQ SCH (09:09)
[2020-09-26] MEDS: SODIUM CHLORIDE 0.9% 1,000 ML IV SCH (09:10)
[2020-09-26] MEDS: ZINC SULFATE 220 MG CAP PO SCH (09:10)
[2020-09-26] MEDS: AMIODARONE 200 MG TAB PO SCH ×2 (09:10→20:24)
[2020-09-26] MEDS: ASPIRIN 81 MG PO SCH (09:10)
[2020-09-26] MEDS: METOPROLOL TARTRATE 25 MG TAB PO SCH (09:10)
[2020-09-26] MEDS: FAMOTIDINE 20 MG TAB PO SCH (09:10)
[2020-09-26 09:51] LABS: Calcium 8.5 mg/dL (8.4-10.2); Potassium 4.6 mmol/L (3.5-5.1)
--- NOTE | 2020-09-26 11:29 | P.PN ---
<Gre Johnson - Last Filed: 09/26/20 11:10> Subjective Progress Note Date: 09/26/20 Hospital Course: Patient is a 70-year-old male with a past medical history significant for hype rtension and atrial fibrillation not on anticoagulation but has implanted watchman's device. He presented to the emergency department this morning with a chief complaint of palpitations accompanied by a fever, generalized weakness and fatigue, epigastric pain, and dyspnea. Patient was seen and fully evaluated in the emergency department resulting in diagnosis of atrial fibrillation with RVR in the 160's along with acute respiratory failure with hypoxia requiring oxygen supplementation. Pt reported he has been experiencing generalized weakness and fatigue along with a fever and loss of appetite beginning 2 days ago. He states prior to coming to the emergency department he awoke in with the feeling that his heart was racing and this was accompanied by epigastric pain described as a hunger-like pain, fever and shortness of breath. Pt reports resolution of epigastric pain and shortness of breath but continues to be febrile, feeling as though his heart is racing and has no appetite. EKG was obtained revealing A. fib RVR with ventricular rate of 158 bpm. Covid 19 virus PCR was POSITIVE. Troponins were found to be elevated at 0.056, 0.065, and 0.068. Chest x-ray showing no acute cardiopulmonary process. Echocardiogram revealed an ejection fraction of 55-60%. Patient was treated for A. fib RVR and started on a Cardizem infusion and admitted under our services with consultation to pulmonology and cardiology. Repeat chest x-ray completed 09/25/20 positive for right lower lobe infiltrate with possible tiny effusion. Physical exam: 09/26/20: Pt seen and fully evaluated at the bedside this morning, he reports having increased weakness and fatigue this morning but states improvement in shortness of breath and cough. Patient states his cough is starting to produce some phlegm which has been white in color. He remains in atrial fibrillation but fluctuates between a controlled and rapid ventricular rate ranging between 80's-120's. BMP showing improvement of AK I with BUN 45, creatinine 1.35, and GFR 52. Patient continues to deny having any other complaints including headache, lightheadedness, dizziness, chest pain, palpitations, or experiencing any numbness/tingling/weakness in extremities. Vital signs reviewed and stable this morning. General: Non toxic, appears at stated age, patient appears comfortable showing no signs of acute distress at this time. Derm: warm, dry Head: atraumatic, normocephalic, symmetric Eyes: EOMI, no lid lag, anicteric sclera Mouth: No lip lesion, mucus membranes moist Cardiovascular: Irregularly irregular rhythm and tachycardic rate. No murmur. Positive posterior tibial pulses bilaterally. No lower extremity edema. Cap refill less than 2 seconds. Lungs: Respirations Even, regular, and unlabored on 2 L O2 via nasal cannula with SpO2 of 93%. Lungs with equal air movement throughout, patient continues to have diffuse coarse rhonchi with coarse cough. Abdominal: Soft, nontender to palpation, no guarding, no appreciable organomegaly Ext: No gross muscle atrophy, no edema, no contractures. Neuro: GCS 15. Speech clear. No focal neuro deficits Psych: Alert, oriented, appropriate affect Assessment and Plan of Care: Acute hypoxic respiratory failure secondary to Covid 19 pneumonitis -Chest x-ray negative for acute cardiopulmonary process. -Repeat chest x-ray completed 09/25/20 positive for right lower lobe infiltrate with possible tiny effusion. -Covid 19 positive on 09/23/20 -Oxygenation to be administered and titrated as needed to maintain SPO2 equal to or greater than 94%, wean oxygen once patient is able, remains on 2 L O2 via nasal cannula. -Remdesivir, day 4 of 5 -Dexamethasone 6 mg daily, day 4 of 10 -Continue vitamin C, vitamin D, zinc, and melatonin. -Bronchodilator protocol with MDIs as needed for SOB and/or wheezing -Incentive Spirometry -Pulmonology following, appreciate further recommendations. Atrial fibrillation with RVR, rate improved fluctuating between 80s to 120s -Patient remains in atrial fibrillation fluctuating between a controlled and rapid ventricular rate since increasing metoprolol and initiation of amiodarone with ventricular rate ranging from 80's-120's. He remains on Cardizem infusion a 15 mg per hour, likely transition to oral cardizem. -EKG revealing A. fib RVR with ventricular rate of 158 bpm -Echocardiogram revealed an ejection fraction of 55-60%. -Watchman's Device in place. -Continuous telemetry monitoring -Cardiology following, appreciate further recommendations Acute Kidney Injury, improving -Elevation in renal function likely secondary to demand ischemia resulting from prolonged RVR. -BUN 45, creatinine 1.35, and GFR 52. -Prolonged tachyarrhythmia resulting from A. fib with RVR has now been controlled, we will provide patient with gentle hydration with 0.9% normal saline at 50 mL's per hour and continue to monitor renal function closely with repeat a.m. labs. Elevated troponin, likely secondary to demand ischemia resulting from prolonged persistent RVR. -Troponins found to be elevated at 0.056, 0.065, and 0.068 -EKG revealing A. fib RVR with ventricular rate of 158 bpm. -Echocardiogram revealed an ejection fraction of 55-60%. -Continuous telemetry monitoring -Treatment of underlying cause, please see assessment and plan of care for A. fib with RVR -Continue daily metoprolol -Cardiology following, appreciate further recommendations. Thrombocytopenia, resolved -Platelets now 173,000 Hypertension, controlled -Monitor vital signs and continue daily medication management. CODE STATUS: Full code DVT prophylaxis: Heparin Discussed with: Patient and RN Anticipated discharge date: Clinical course to determine Anticipated discharge place: Home A total of 45 minutes was spent on the care of this complex patient more than 50% of the time was spent in counseling and care coordination. Objective - Vital Signs Vital signs: Vital Signs Temp 97.6 F 09/26/20 06:30 Pulse 80 09/26/20 06:30 Resp 17 09/26/20 06:30 BP 126/79 09/26/20 06:30 Pulse Ox 94 L 09/26/20 06:30 Intake & Output 09/25/20 09/26/20 09/26/20 18:59 06:59 18:59 Intake Total 2115 385 480 Output Total 802 371 Balance 1313 14 480 Weight 135 kg Intake: IV 20 20 Invasive Line 3 20 20 Intake, IV Titration 975 125 Amount Diltiazem 125 mg In 125 125 Sodium Chloride 0.9% 100 ml @ 5 MG/HR 5 mls/hr IV .Q24H HA Rx#:[id number] Remdesivir 100 mg In 250 Sodium Chloride 0.9% 250 ml @ 250 mls/hr IVPB DAILY@1800 HA Rx#: [id number] Sodium Chloride 0.9% 1, 600 000 ml @ 75 mls/hr IV . [id number] HA Rx#:[id number] Oral 1120 240 480 Output: Urine 800 370 Stool 2 1 Other: Voiding Method Bedside Commode Bedside Commode # Voids 1 - Labs CBC & Chem 7: 09/25/20 07:43 09/26/20 08:23 <Maribel Cherry - Last Filed: 09/26/20 21:09> Objective - Vital Signs Vital signs: Vital Signs Temp 97.7 F 09/26/20 08:15 Pulse 87 09/26/20 16:25 Resp 18 09/26/20 16:25 BP 133/81 09/26/20 16:25 Pulse Ox 97 09/26/20 16:25 Intake & Output 09/26/20 09/26/20 09/27/20 06:59 18:59 06:59 Intake Total 385 1178.667 8.375 Output Total 371 100 Balance 14 1078.667 8.375 Weight 135 kg Intake: IV 20 Invasive Line 3 20 Intake, IV Titration 125 218.667 8.375 Amount Diltiazem 125 mg In 125 143.667 8.375 Sodium Chloride 0.9% 100 ml @ 5 MG/HR 5 mls/hr IV .Q24H HA Rx#:[id number] Sodium Chloride 0.9% 1, 75 000 ml @ 75 mls/hr IV . [id number] HA Rx#:[id number] Oral 240 960 Output: Urine 370 100 Stool 1 Other: Voiding Method Bedside Commode # Voids 1 - Labs CBC & Chem 7: 09/25/20 07:43 09/26/20 08:23 Labs: Abnormal Lab Results - Last 24 Hours (Table) 09/26/20 Range/Units 08:23 BUN 45 H (9-20) mg/dL Creatinine 1.35 H (0.66-1.25) mg/dL Glucose 205 H (74-99) mg/dL Assessment and Plan Assessment: I discussed the care with Ger Johnson NP and reviewed the findings and plan as documented in the note above. I did not physically speak with or examine the patient on this date.
[2020-09-26] MEDS ORDERED: METOPROLOL TARTRATE 25 MG TAB PO STA (12:35)
--- NOTE | 2020-09-26 15:11 | P.PN ---
Subjective 09/25/2020: This is a 70-year-old male who was admitted to the hospital secondary to Covid- 19. We have been consulted for new onset atrial fibrillation with RVR and elevated troponin. Patient remains in atrial fibrillation and medications have been adjusted for rate control. Patient was started on Cardizem drip, this morning at 10mg an hour. Patient is also receiving metoprolol 75 mg twice a day. Blood pressure 123/73 and 108/77, HR 80s-100s. He is on 2 L nasal cannula with oxygen saturations greater than 92%. Echocardiogram completed on 09/23/2020 revealed ejection fraction 55-60%, trace aortic regurgitation, trace tricuspid regurgitation, and trace mitral regurgitation. Laboratory reviewed, WBC 5.4, hemoglobin 15.8, platelets 173, d-dimer 0.42, sodium 139, potassium 4.9, serum creatinine 1.6, BUN 41. 09/26/2020: Patient seen sitting up at the edge of the bed. BP and 123/78, heart rate 91, afebrile, maintaining oxygen saturation on 2 L nasal cannula. laboratory data reviewed, sodium 140, potassium 4.6, serum creatinine 1.35, BUN 45. Telemetry reviewed, patient in atrial fibrillation HR 80s-120s. PHYSICAL EXAM: Patient alert and oriented x 3, no acute distress Thorough physical exam not completed secondary to limited evaluation/examination and due to Covid19 ASSESSMENT: Covid 19 Acute hypoxic respiratory failure Abnormal troponins, peaked at 0.06, most likely realted to demand ischemia from prolonged atrial fibrillation with RVR, no evidence of acute coronary syndrome Acute Kidney Injury scR 1.35 from 1.45 Paroxysmal atrial fibrillation with RVR History of watchman procedure Hypertension PLAN: No anticoagulation necessary secondary to watchman procedure Cardizem drip has been at 5mg/hr and continue to wean as tolerated Increase metoprolol 100mg twice a day Patient started amiodarone on 400 mg twice a day Further recommendations pending patient's course Nurse practitioner note has been reviewed by physician. Signing provider agrees with the documented findings, assessment, and plan of care. 1.35 Objective - Vital Signs Vital signs: Vital Signs Temp 97.7 F 09/26/20 08:15 Pulse 91 09/26/20 08:15 Resp 18 09/26/20 08:15 BP 123/78 09/26/20 08:15 Pulse Ox 99 09/26/20 08:15 Intake & Output 09/25/20 09/26/20 09/26/20 18:59 06:59 18:59 Intake Total 2115 385 555 Output Total 802 371 Balance 1313 14 555 Weight 135 kg Intake: IV 20 20 Invasive Line 3 20 20 Intake, IV Titration 975 125 75 Amount Diltiazem 125 mg In 125 125 Sodium Chloride 0.9% 100 ml @ 5 MG/HR 5 mls/hr IV .Q24H HA Rx#:[id number] Remdesivir 100 mg In 250 Sodium Chloride 0.9% 250 ml @ 250 mls/hr IVPB DAILY@1800 HA Rx#: [id number] Sodium Chloride 0.9% 1, 600 75 000 ml @ 75 mls/hr IV . [id number] HA Rx#:[id number] Oral 1120 240 480 Output: Urine 800 370 Stool 2 1 Other: Voiding Method Bedside Commode Bedside Commode # Voids 1 - Labs CBC & Chem 7: 09/25/20 07:43 09/26/20 08:23 Labs: Abnormal Lab Results - Last 24 Hours (Table) 09/26/20 Range/Units 08:23 BUN 45 H (9-20) mg/dL Creatinine 1.35 H (0.66-1.25) mg/dL Glucose 205 H (74-99) mg/dL
[2020-09-26] MEDS: REMDESIVIR 100 MG in SODIUM CHLORIDE 0.9% 250 ML IVPB SCH (17:04)
--- NOTE | 2020-09-26 18:31 | P.PN ---
Subjective Progress Note Date: 09/26/20 Principal diagnosis: COVID 19 pneumonia, A. fib Patient was reevaluated today on 09/21/2020, remains on high flow oxygen she is presently on 90% FiO2 and 60 L high flow. Recommended probing the patient, and she is trying to go into prone position, patient remains extremely marginal at best. ABC is relatively normal lites are normal renal profile is normal d-dimer is elevated at 30.84. This is the highest d-dimer I have seen since her admission. Patient is maintained on Lovenox at 45 mg subcu twice a day. I would likely recommend a CT angiogram of this patient as she may be a great set up for acute pulmonary embolism considering her elevated d-dimer and considering her Covid 19 infection and seems to be very slow to respond. Reevaluated today on 09/22/2020, patient is feeling much better today. Breathing a lot easier. And her saturations are improving. Yesterday when I saw the patient and I was concerned about her elevated d-dimer, she could not go down for a CT angiogram of the chest, hence I recommended bilateral venous Doppler, and a Doppler was positive for bilateral deep vein thrombosis. Hence I recommended that the patient goes on heparin and discontinued her subcu Lovenox. I am certain that the patient had acute pulmonary embolism along with DVT based on her symptoms yesterday although she does have underlying Covid 19 pneumonia. Today the patient is resting more comfortably, she is on Airvo, with flow rate of 60 and FiO2 of 90%, her O2 saturation is in the low 90s. Less shortness of breath according to the patient, and she clearly tells me that today is much better today for her than yesterday. CBC is relatively normal hemoglobin is 1 4.7. Platelets are a bit low hence I will discontinue heparin tomorrow and start the patient on Xarelto. Her PTT is 74.5. Electrolites are normal renal profile is normal. Down the line and may even consider a CT angiogram of the chest to document thromboembolic disease/pulmonary embolism. Reevaluated today on 09/23/2020, patient remains about the same. Still requiring significantly high FiO2. Patient is on a nonrebreather mask and airvo, O2 saturation is 88-90% she is on 90% FiO2 and 60 L high flow. Plus a nonrebreather mask. Surprisingly the patient tells me that she is doing okay not as symptomatic as expected considering that her O2 saturation is marginal. Yesterday, the patient was transitioned to Xarelto and she is taking the Xarelto as directed. CBC today is relatively normal hemoglobin is 14.7 platelet are 89,000. Electrolytes are normal renal profile is normal The patient is seen today 08/24/2020 in follow-up on the regular selective care unit. She is doing better today compared to yesterday. Less cough and congestion. Still requiring careful high flow oxygen at 60 L and 90% FiO2 to maintain O2 saturations in the low 90s. She is feeling a bit stronger. Chest x-ray continues to show interstitial airspace disease and mild edema slightly improved compared to previous. Blood glucose 133. She remains on IV Solu- Medrol, vitamin supplements. Anticoagulated with Xarelto. Progress note dated 09/25/2020. This is a 56-year-old female admitted with a diagnosis of acute hypoxemic respiratory failure secondary to COVID 19 pneumonia. The patient did receive TOCI. In addition, the patient has benign essential hypertension, deep venous thrombosis and possible pulmonary embolism, hypertension, chronic nicotine addiction, uterine and cervical cancer, status post hysterectomy, and hypovolemic hyponatremia. Currently, the patient is on AIRVO, at 60 L/m with an FiO2 of 80%. White count 12.5, hemoglobin 13.9, hematocrit 41.6, platelet count 80,000. Id. at 8.39. Sodium 135, potassium 4.5, chlorides 102, CO2 32, anion gap is 1, BUN is 20, creatinine 0.56. LDH is 1855. Chest x-ray shows diffuse interstitial and airspace disease. On 09/26/2020 patient seen in follow-up on selective care unit. Resting comfortably in bed, appears weak, but no acute distress, he is currently on 2 L of oxygen his pulse ox of 99%, his been afebrile, hemodynamically he is stable, appears to breathing comfortably, denies any chest discomfort, he remains on Cardizem infusion, his heart rate is better controlled, ideology is following, his Cardizem is infusing at 5 mg per hour, he is on Lovenox prophylactic dose 40 mg daily, he is also on oral amiodarone and metoprolol 100 mg twice daily, patient continues on Remdesivir treatment for his Covid 19 pneumonia, and today is day 4 of treatment. No worsening hypoxia no worsening dyspnea, his last chest x-ray was done yesterday showing diffuse interstitial airspace disease. No fever, no headaches, cough, today's labs have been reviewed, electrolytes within normal limits, urine is 45, creatinine is 1.35, last d-dimer was yesterday at 0.42, his LDH and CRP were done yesterday, and overall slightly improved from admission. Objective - Vital Signs Vital signs: Vital Signs Temp 97.7 F 09/26/20 08:15 Pulse 91 09/26/20 08:15 Resp 18 09/26/20 08:15 BP 123/78 09/26/20 08:15 Pulse Ox 99 09/26/20 08:15 Intake & Output 09/25/20 09/26/20 09/26/20 18:59 06:59 18:59 Intake Total 2115 385 938.667 Output Total 802 371 100 Balance 1313 14 838.667 Weight 135 kg Intake: IV 20 20 Invasive Line 3 20 20 Intake, IV Titration 975 125 218.667 Amount Diltiazem 125 mg In 125 125 143.667 Sodium Chloride 0.9% 100 ml @ 5 MG/HR 5 mls/hr IV .Q24H HA Rx#:[id number] Remdesivir 100 mg In 250 Sodium Chloride 0.9% 250 ml @ 250 mls/hr IVPB DAILY@1800 HA Rx#: [id number] Sodium Chloride 0.9% 1, 600 75 000 ml @ 75 mls/hr IV . [id number] HA Rx#:[id number] Oral 1120 240 720 Output: Urine 800 370 100 Stool 2 1 Other: Voiding Method Bedside Commode Bedside Commode # Voids 1 - Exam GENERAL EXAM: Alert, very pleasant, 70-year-old white male, 2 L of oxygen comfortable in no apparent distress. HEAD: Normocephalic/atraumatic. EYES: Normal reaction of pupils, equal size. Conjunctiva pink, sclera white. NOSE: Clear with pink turbinates. THROAT: No erythema or exudates. NECK: No masses, no JVD, no thyroid enlargement, no adenopathy. CHEST: No chest wall deformity. Symmetrical expansion. LUNGS: Equal air entry with no crackles, wheeze, rhonchi or dullness. CVS: Irregular rate and rhythm, normal S1 and S2, no gallops, no murmurs, no rubs ABDOMEN: Soft, nontender. No hepatosplenomegaly, normal bowel sounds, no guarding or rigidity. EXTREMITIES: No clubbing, no edema, no cyanosis, 2+ pulses and upper and lower extremities. MUSCULOSKELETAL: Muscle strength and tone normal. SPINE: No scoliosis or deformity SKIN: No rashes CENTRAL NERVOUS SYSTEM: Alert and oriented -3. No focal deficits, tone is normal in all 4 extremities. PSYCHIATRIC: Alert and oriented -3. Appropriate affect. Intact judgment and insight. - Labs CBC & Chem 7: 09/25/20 07:43 09/26/20 08:23 Labs: Abnormal Lab Results - Last 24 Hours (Table) 09/26/20 Range/Units 08:23 BUN 45 H (9-20) mg/dL Creatinine 1.35 H (0.66-1.25) mg/dL Glucose 205 H (74-99) mg/dL Assessment and Plan Plan: Assessment: Atrial fibrillation with RVR. COVID 19 infection, with minimal respiratory issues at this time. History of hypertension. History of atrial fibrillation. Plan: Patient is stable from a pulmonary perspective, no worsening dyspnea no worsening hypoxia, today is day 4 of Remdesivir treatment, continue current medical treatment, continue dexamethasone, continue Lovenox, remains in A. fib, we will leave the anticoagulation to cardiology. We'll continue to follow I performed a history & physical examination of the patient and discussed their management with my nurse practitioner, Leesa Villa. I reviewed the nurse practitioner's note and agree with the documented findings and plan of care. Lung sounds are positive for diffuse wheezes throughout the lung leblanc. The findings and the impression was discussed with the patient. I attest to the documentation by the nurse practitioner. Time with Patient: Less than 30
[2020-09-26] MEDS: METOPROLOL TARTRATE 50 MG TAB PO SCH (20:24)
[2020-09-26] MEDS: ONDANSETRON 4 MG/2 ML VIAL IVP PRN (20:24)
[2020-09-27 01:59] LABS: Magnesium 2.3 mg/dL (1.6-2.3); Potassium 4.6 mmol/L (3.5-5.1)
[2020-09-27] MEDS: ALBUTEROL HFA INHALER INHALATION SCH ×4 (07:39→21:17)
[2020-09-27] MEDS: FAMOTIDINE 20 MG TAB PO SCH (08:58)
[2020-09-27] MEDS: AMIODARONE 200 MG TAB PO SCH ×2 (08:59→21:01)
[2020-09-27] MEDS: dexAMETHasone 2 MG TAB PO SCH (08:59)
[2020-09-27] MEDS: ASPIRIN 81 MG PO SCH (08:59)
[2020-09-27] MEDS: METOPROLOL TARTRATE 50 MG TAB PO SCH ×2 (08:59→21:01)
[2020-09-27] MEDS: ZINC SULFATE 220 MG CAP PO SCH (09:00)
[2020-09-27] MEDS: ASCORBIC ACID 500 MG TAB PO SCH (09:00)
[2020-09-27] MEDS: ENOXAPARIN 40 MG/0.4 ML SYRINGE SQ SCH (09:00)
[2020-09-27 11:53] LABS: C Reactive Protein 13.6 mg/L (<10.0); Calcium 8.4 mg/dL (8.4-10.2); Potassium 4.4 mmol/L (3.5-5.1)
[2020-09-27 12:03] LABS: HCT 48.3 % (39.0-53.0); HGB 16.1 gm/dL (13.0-17.5); MCH 30.5 pg (25.0-35.0); MCHC 33.2 g/dL (31.0-37.0); MCV 91.6 fL (80.0-100.0); Platelet Count 226 k/uL (150-450); RBC 5.27 m/uL (4.30-5.90); RDW 14.2 % (11.5-15.5)
--- NOTE | 2020-09-27 12:22 | P.PN ---
Subjective Progress Note Date: 09/27/20 Pt is now off of oxygen and feels better. Still reports weakness and shortness of breath with exertion. He is sitting in chair frequently, and able to use IS frequently. Objective - Vital Signs Vital signs: Vital Signs Temp 97.8 F 09/27/20 08:00 Pulse 112 H 09/27/20 08:00 Resp 18 09/27/20 08:00 BP 133/82 09/27/20 08:00 Pulse Ox 96 09/27/20 08:00 Intake & Output 09/26/20 09/27/20 09/27/20 18:59 06:59 18:59 Intake Total 1178.667 608.375 118 Output Total 100 752 Balance 1078.667 -143.625 118 Weight 138.5 kg Intake: Intake, IV Titration 218.667 8.375 Amount Diltiazem 125 mg In 143.667 8.375 Sodium Chloride 0.9% 100 ml @ 5 MG/HR 5 mls/hr IV .Q24H HA Rx#:[id number] Sodium Chloride 0.9% 1, 75 000 ml @ 75 mls/hr IV . [id number] HA Rx#:[id number] Oral 960 600 118 Output: Urine 100 750 Stool 2 Other: Voiding Method Bedside Commode # Voids 1 - Exam Gen: awake, alert HEENT: normocephalic, atraumatic, good hearing acuity, moist mucous membranes Resp: good air exchange, breathing comfortably with no accessory muscle use, clear to auscultation bilaterally with mild bibasilar crackles CVS: good distal perfusion x 4, regular rate and rhythm without murmurs GI: soft, NTTP, ND appropriate bowel sounds : no SPT, no CVAT, moreno catheter not present MSK: no pitting edema, no clubbing Neuro: non-focal, moving all extremities Psych: cooperative, euthymic mood - Labs CBC & Chem 7: 09/27/20 10:54 09/27/20 10:54 Labs: Abnormal Lab Results - Last 24 Hours (Table) 09/27/20 Range/Units 10:54 BUN 40 H (9-20) mg/dL Glucose 193 H (74-99) mg/dL Lactate Dehydrogenase 939 H (313-618) U/L C-Reactive Protein 13.6 H (<10.0) mg/L Assessment and Plan Assessment: Acute hypoxic respiratory failure secondary to Covid 19 pneumonitis -Chest x-ray negative for acute cardiopulmonary process. -Repeat chest x-ray completed 09/25/20 positive for right lower lobe infiltrate with possible tiny effusion. -Covid 19 positive on 09/23/20 -Oxygenation to be administered and titrated as needed to maintain SPO2 equal to or greater than 94%, wean oxygen once patient is able, on room air. -Remdesivir, day -Dexamethasone 6 mg daily, day -Continue vitamin C, vitamin D, zinc, and melatonin. -Bronchodilator protocol with MDIs as needed for SOB and/or wheezing -Incentive Spirometry -Pulmonology following, appreciate further recommendations. Atrial fibrillation with RVR, rate improved fluctuating between 80s to 120s -Patient remains in atrial fibrillation fluctuating between a controlled and rapid ventricular rate since increasing metoprolol and initiation of amiodarone with ventricular rate ranging from 80's-120's. He remains on Cardizem infusion a 15 mg per hour, likely transition to oral cardizem. -EKG revealing A. fib RVR with ventricular rate of 158 bpm -Echocardiogram revealed an ejection fraction of 55-60%. -Watchman's Device in place. -Continuous telemetry monitoring -Cardiology following, appreciate further recommendations Acute Kidney Injury, improving -Elevation in renal function likely secondary to demand ischemia resulting from prolonged RVR. -BUN 45, creatinine 1.35, and GFR 52. -Prolonged tachyarrhythmia resulting from A. fib with RVR has now been controlled, we will provide patient with gentle hydration with 0.9% normal saline at 50 mL's per hour and continue to monitor renal function closely with repeat a.m. labs. Elevated troponin, likely secondary to demand ischemia resulting from prolonged persistent RVR. -Troponins found to be elevated at 0.056, 0.065, and 0.068 -EKG revealing A. fib RVR with ventricular rate of 158 bpm. -Echocardiogram revealed an ejection fraction of 55-60%. -Continuous telemetry monitoring -Treatment of underlying cause, please see assessment and plan of care for A. fib with RVR -Continue daily metoprolol -Cardiology following, appreciate further recommendations. Thrombocytopenia, resolved -Platelets now 173,000 Hypertension, controlled -Monitor vital signs and continue daily medication management. CODE STATUS: Full code DVT prophylaxis: Heparin Discussed with: Patient and RN Anticipated discharge date: Clinical course to determine Anticipated discharge place: Home
--- NOTE | 2020-09-27 16:22 | P.PN ---
Subjective 09/25/2020: This is a 70-year-old male who was admitted to the hospital secondary to Covid- 19. We have been consulted for new onset atrial fibrillation with RVR and elevated troponin. Patient remains in atrial fibrillation and medications have been adjusted for rate control. Patient was started on Cardizem drip, this morning at 10mg an hour. Patient is also receiving metoprolol 75 mg twice a day. Blood pressure 123/73 and 108/77, HR 80s-100s. He is on 2 L nasal cannula with oxygen saturations greater than 92%. Echocardiogram completed on 09/23/2020 revealed ejection fraction 55-60%, trace aortic regurgitation, trace tricuspid regurgitation, and trace mitral regurgitation. Laboratory reviewed, WBC 5.4, hemoglobin 15.8, platelets 173, d-dimer 0.42, sodium 139, potassium 4.9, serum creatinine 1.6, BUN 41. 09/27/2020: Patient seen at bedside. He does not any complaints. Denies chest pain, shortness of breath, palpitations. BP and 117/82, heart rate 111, afebrile, maintaining oxygen saturation on room air. laboratory data reviewed, sodium 142, potassium 4.4, serum creatinine 1.20 (1.35 yesterday) BUN 40. D-dimer 0.50 Telemetry reviewed, patient in atrial fibrillation HR 110s-120s. Patient with episodes of 2 second pauses, right bundle branch block, atrial fibrillation with aberrancy PHYSICAL EXAM: Patient alert and oriented x 3, no acute distress Thorough physical exam not completed secondary to limited evaluation/examination and due to Covid19 ASSESSMENT: Covid 19 Acute hypoxic respiratory failure Abnormal troponins, peaked at 0.06, most likely realted to demand ischemia from prolonged atrial fibrillation with RVR, no evidence of acute coronary syndrome Acute Kidney Injury scR 1.35 from 1.45 Paroxysmal atrial fibrillation with RVR History of watchman procedure Hypertension PLAN: No anticoagulation necessary secondary to watchman procedure Start Cardizem 30mg TID Continue metoprolol 100mg twice a day Patient started amiodarone on 400 mg twice a day on 09/24/20 Continue cardiac telemetry Further recommendations pending patient's course Nurse practitioner note has been reviewed by physician. Signing provider agrees with the documented findings, assessment, and plan of care. 1.35 Objective - Vital Signs Vital signs: Vital Signs Temp 98.1 F 0407/21 12:00 Pulse 111 H 09/27/20 12:00 Resp 24 09/27/20 12:00 BP 117/82 09/27/20 12:00 Pulse Ox 95 09/27/20 12:00 Intake & Output 09/26/20 09/27/20 09/27/20 18:59 06:59 18:59 Intake Total 1178.667 608.375 348 Output Total 100 752 100 Balance 1078.667 -143.625 248 Weight 138.5 kg Intake: Intake, IV Titration 218.667 8.375 80 Amount Diltiazem 125 mg In 143.667 8.375 Sodium Chloride 0.9% 100 ml @ 5 MG/HR 5 mls/hr IV .Q24H [facility] Rx#:[id number] Sodium Chloride 0.9% 1, 80 000 ml @ 20 mls/hr IV . Q24H [facility] Rx#:[id number] Sodium Chloride 0.9% 1, 75 000 ml @ 75 mls/hr IV . [id number] [facility] Rx#:[id number] Oral 960 600 268 Output: Urine 100 750 100 Stool 2 Other: Voiding Method Bedside Commode # Voids 1 # Bowel Movements 1 - Labs CBC & Chem 7: 09/27/20 10:54 09/27/20 10:54 Labs: Abnormal Lab Results - Last 24 Hours (Table) 09/27/20 Range/Units 10:54 BUN 40 H (9-20) mg/dL Glucose 193 H (74-99) mg/dL Lactate Dehydrogenase 939 H (313-618) U/L C-Reactive Protein 13.6 H (<10.0) mg/L
[2020-09-27] MEDS: SODIUM CHLORIDE 0.9% 1,000 ML IV SCH (17:01)
[2020-09-27] MEDS: DILTIAZEM 125 MG in SODIUM CHLORIDE 0.9% 100 ML IV SCH (17:01)
[2020-09-27] MEDS: DILTIAZEM ORAL 30 MG TAB PO SCH ×2 (17:15→21:01)
--- NOTE | 2020-09-27 17:19 | P.PN ---
Subjective Progress Note Date: 09/27/20 Principal diagnosis: CoVID 19 pneumonia Patient was reevaluated today on 09/21/2020, remains on high flow oxygen she is presently on 90% FiO2 and 60 L high flow. Recommended probing the patient, and she is trying to go into prone position, patient remains extremely marginal at best. ABC is relatively normal lites are normal renal profile is normal d-dimer is elevated at 30.84. This is the highest d-dimer I have seen since her admission. Patient is maintained on Lovenox at 45 mg subcu twice a day. I would likely recommend a CT angiogram of this patient as she may be a great set up for acute pulmonary embolism considering her elevated d-dimer and considering her Covid 19 infection and seems to be very slow to respond. Reevaluated today on 09/22/2020, patient is feeling much better today. Breathing a lot easier. And her saturations are improving. Yesterday when I saw the patient and I was concerned about her elevated d-dimer, she could not go down for a CT angiogram of the chest, hence I recommended bilateral venous Doppler, and a Doppler was positive for bilateral deep vein thrombosis. Hence I recommended that the patient goes on heparin and discontinued her subcu Lovenox. I am certain that the patient had acute pulmonary embolism along with DVT based on her symptoms yesterday although she does have underlying Covid 19 pneumonia. Today the patient is resting more comfortably, she is on Airvo, with flow rate of 60 and FiO2 of 90%, her O2 saturation is in the low 90s. Less shortness of breath according to the patient, and she clearly tells me that today is much better today for her than yesterday. CBC is relatively normal hemoglobin is 14.7. Platelets are a bit low hence I will discontinue heparin tomorrow and start the patient on Xarelto. Her PTT is 74.5. Electrolites are normal renal profile is normal. Down the line and may even consider a CT angiogram of the chest to document thromboembolic disease/pulmonary embolism. Reevaluated today on 09/23/2020, patient remains about the same. Still requiring significantly high FiO2. Patient is on a nonrebreather mask and airvo, O2 saturation is 88-90% she is on 90% FiO2 and 60 L high flow. Plus a nonrebreather mask. Surprisingly the patient tells me that she is doing okay not as symptomatic as expected considering that her O2 saturation is marginal. Yesterday, the patient was transitioned to Xarelto and she is taking the Xarelto as directed. CBC today is relatively normal hemoglobin is 14.7 platelet are 89,000. Electrolytes are normal renal profile is normal The patient is seen today 08/24/2020 in follow-up on the regular selective care unit. She is doing better today compared to yesterday. Less cough and congestion. Still requiring careful high flow oxygen at 60 L and 90% FiO2 to maintain O2 saturations in the low 90s. She is feeling a bit stronger. Chest x-ray continues to show interstitial airspace disease and mild edema slightly improved compared to previous. Blood glucose 133. She remains on IV Solu- Medrol, vitamin supplements. Anticoagulated with Xarelto. Progress note dated 09/25/2020. This is a 56-year-old female admitted with a diagnosis of acute hypoxemic respiratory failure secondary to COVID 19 pneumonia. The patient did receive TOCI. In addition, the patient has benign essential hypertension, deep venous thrombosis and possible pulmonary embolism, hypertension, chronic nicotine addiction, uterine and cervical cancer, status post hysterectomy, and hypovolemic hyponatremia. Currently, the patient is on AIRVO, at 60 L/m with an FiO2 of 80%. White count 12.5, hemoglobin 13.9, hematocrit 41.6, platelet count 80,000. Id. at 8.39. Sodium 135, potassium 4.5, chlorides 102, CO2 32, anion gap is 1, BUN is 20, creatinine 0.56. LDH is 1855. Chest x-ray shows diffuse interstitial and airspace disease. On 09/26/2020 patient seen in follow-up on selective care unit. Resting comfortably in bed, appears weak, but no acute distress, he is currently on 2 L of oxygen his pulse ox of 99%, his been afebrile, hemodynamically he is stable, appears to breathing comfortably, denies any chest discomfort, he remains on Cardizem infusion, his heart rate is better controlled, ideology is following, his Cardizem is infusing at 5 mg per hour, he is on Lovenox prophylactic dose 40 mg daily, he is also on oral amiodarone and metoprolol 100 mg twice daily, patient continues on Remdesivir treatment for his Covid 19 pneumonia, and today is day 4 of treatment. No worsening hypoxia no worsening dyspnea, his last chest x-ray was done yesterday showing diffuse interstitial airspace disease. No fever, no headaches, cough, today's labs have been reviewed, electrolytes within normal limits, urine is 45, creatinine is 1.35, last d-dimer was yesterday at 0.42, his LDH and CRP were done yesterday, and overall slightly improved from admission. The patient is seen today 09/27/2020 in follow-up on the selective care unit. He is currently sitting up at the bedside. Awake and alert in no acute distress. He is maintaining O2 saturations in the 90s on room air. He is on day #5 of Remdesivir. He remains on Cardizem drip at 2.5 mg per hour. 0.9 normal saline at 20 ML's per hour. White count 7.0. Hemoglobin 16.1. D-dimer 0.5. Sodium 142. Potassium 4.4. Creatinine 1.20. LDH 939. C-reactive protein 13.6. He remains on dexamethasone, Lovenox, vitamin supplements. Objective - Vital Signs Vital signs: Vital Signs Temp 98.1 F 09/27/20 12:00 Pulse 111 H 09/27/20 12:00 Resp 24 09/27/20 12:00 BP 117/82 09/27/20 12:00 Pulse Ox 95 09/27/20 12:00 Intake & Output 09/26/20 09/27/20 09/27/20 18:59 06:59 18:59 Intake Total 1178.667 608.375 348 Output Total 100 752 100 Balance 1078.667 -143.625 248 Weight 138.5 kg Intake: Intake, IV Titration 218.667 8.375 80 Amount Diltiazem 125 mg In 143.667 8.375 Sodium Chloride 0.9% 100 ml @ 5 MG/HR 5 mls/hr IV .Q24H [facility] Rx#:[id number] Sodium Chloride 0.9% 1, 80 000 ml @ 20 mls/hr IV . Q24H [facility] Rx#:[id number] Sodium Chloride 0.9% 1, 75 000 ml @ 75 mls/hr IV . [id number] [facility] Rx#:[id number] Oral 960 600 268 Output: Urine 100 750 100 Stool 2 Other: Voiding Method Bedside Commode # Voids 1 # Bowel Movements 1 - Exam GENERAL EXAM: Alert, active, pleasant 70-year-old gentleman, on room air, comfortable in no apparent distress. HEAD: Normocephalic. EYES: Normal reaction of pupils, equal size. NOSE: Clear with pink turbinates. THROAT: No erythema or exudates. NECK: No masses, no JVD. CHEST: No chest wall deformity. LUNGS: Equal air entry with crackles in the bilateral posterior bases. CVS: S1 and S2 normal with no audible murmur, irregular rhythm. ABDOMEN: No hepatosplenomegaly, normal bowel sounds, no guarding or rigidity. SPINE: No scoliosis or deformity SKIN: No rashes CENTRAL NERVOUS SYSTEM: No focal deficits, tone is normal in all 4 extremities. EXTREMITIES: There is no peripheral edema. No clubbing, no cyanosis. Peripheral pulses are intact. - Labs CBC & Chem 7: 09/27/20 10:54 09/27/20 10:54 Labs: Abnormal Lab Results - Last 24 Hours (Table) 09/27/20 Range/Units 10:54 BUN 40 H (9-20) mg/dL Glucose 193 H (74-99) mg/dL Lactate Dehydrogenase 939 H (313-618) U/L C-Reactive Protein 13.6 H (<10.0) mg/L Assessment and Plan Assessment: 1 Acute CoVID 19 infection with minimal respiratory complaints, on room air 2 Atrial fibrillation with rapid ventricular response, currently on a Cardizem drip 3 History of hypertension 4 History of paroxysmal atrial fibrillation, status post watchman procedure Plan: The patient was seen and evaluated by Dr. Claros This is day #5 of Remdesivir however the patient is on room air and recovered we'll cancel the last dose Currently on Lovenox, dexamethasone, vitamin supplements Probable home in the a.m. We will continue to follow I, the cosigning physician, performed a history & physical examination of the patient. Lungs sounds with crackles in the posterior bases. Maintaining good O2 saturations in the 90s on room air. I discussed the assessment and plan of care with my nurse practitioner, Maura Saldana. I attest to the above note as dictated by her.
[2020-09-28] MEDS: ONDANSETRON 4 MG/2 ML VIAL IVP PRN (08:10)
[2020-09-28] MEDS: AMIODARONE 200 MG TAB PO SCH (08:11)
[2020-09-28] MEDS: ASCORBIC ACID 500 MG TAB PO SCH (08:11)
[2020-09-28] MEDS: METOPROLOL TARTRATE 50 MG TAB PO SCH (08:11)
[2020-09-28] MEDS: dexAMETHasone 2 MG TAB PO SCH (08:12)
[2020-09-28] MEDS: ENOXAPARIN 40 MG/0.4 ML SYRINGE SQ SCH (08:12)
[2020-09-28] MEDS: FAMOTIDINE 20 MG TAB PO SCH (08:12)
[2020-09-28] MEDS: ZINC SULFATE 220 MG CAP PO SCH (08:12)
[2020-09-28] MEDS: ASPIRIN 81 MG PO SCH (08:12)
[2020-09-28] MEDS: DILTIAZEM ORAL 30 MG TAB PO SCH (08:12)
[2020-09-28 08:18] VITALS: BP 137/89; PULSE 96; RESP 20; TEMP 97.8
[2020-09-28] MEDS: ALBUTEROL HFA INHALER INHALATION SCH ×4 (08:19→16:15)
[2020-09-28] MEDS: SODIUM CHLORIDE 0.9% 1,000 ML IV SCH (12:21)
--- NOTE | 2020-09-28 13:06 | P.PN ---
Subjective Progress Note Date: 09/28/20 Principal diagnosis: CoVID 19 pneumonia Patient was reevaluated today on 09/21/2020, remains on high flow oxygen she is presently on 90% FiO2 and 60 L high flow. Recommended probing the patient, and she is trying to go into prone position, patient remains extremely marginal at best. ABC is relatively normal lites are normal renal profile is normal d-dimer is elevated at 30.84. This is the highest d-dimer I have seen since her admission. Patient is maintained on Lovenox at 45 mg subcu twice a day. I would likely recommend a CT angiogram of this patient as she may be a great set up for acute pulmonary embolism considering her elevated d-dimer and considering her Covid 19 infection and seems to be very slow to respond. Reevaluated today on 09/22/2020, patient is feeling much better today. Breathing a lot easier. And her saturations are improving. Yesterday when I saw the patient and I was concerned about her elevated d-dimer, she could not go down for a CT angiogram of the chest, hence I recommended bilateral venous Doppler, and a Doppler was positive for bilateral deep vein thrombosis. Hence I recommended that the patient goes on heparin and discontinued her subcu Lovenox. I am certain that the patient had acute pulmonary embolism along with DVT based on her symptoms yesterday although she does have underlying Covid 19 pneumonia. Today the patient is resting more comfortably, she is on Airvo, with flow rate of 60 and FiO2 of 90%, her O2 saturation is in the low 90s. Less shortness of breath according to the patient, and she clearly tells me that today is much better today for her than yesterday. CBC is relatively normal hemoglobin is 14.7. Platelets are a bit low hence I will discontinue heparin tomorrow and start the patient on Xarelto. Her PTT is 74.5. Electrolites are normal renal profile is normal. Down the line and may even consider a CT angiogram of the chest to document thromboembolic disease/pulmonary embolism. Reevaluated today on 09/23/2020, patient remains about the same. Still requiring significantly high FiO2. Patient is on a nonrebreather mask and airvo, O2 saturation is 88-90% she is on 90% FiO2 and 60 L high flow. Plus a nonrebreather mask. Surprisingly the patient tells me that she is doing okay not as symptomatic as expected considering that her O2 saturation is marginal. Yesterday, the patient was transitioned to Xarelto and she is taking the Xarelto as directed. CBC today is relatively normal hemoglobin is 14.7 platelet are 89,000. Electrolytes are normal renal profile is normal The patient is seen today 08/24/2020 in follow-up on the regular selective care unit. She is doing better today compared to yesterday. Less cough and congestion. Still requiring careful high flow oxygen at 60 L and 90% FiO2 to maintain O2 saturations in the low 90s. She is feeling a bit stronger. Chest x-ray continues to show interstitial airspace disease and mild edema slightly improved compared to previous. Blood glucose 133. She remains on IV Solu- Medrol, vitamin supplements. Anticoagulated with Xarelto. Progress note dated 09/25/2020. This is a 56-year-old female admitted with a diagnosis of acute hypoxemic respiratory failure secondary to COVID 19 pneumonia. The patient did receive TOCI. In addition, the patient has benign essential hypertension, deep venous thrombosis and possible pulmonary embolism, hypertension, chronic nicotine addiction, uterine and cervical cancer, status post hysterectomy, and hypovolemic hyponatremia. Currently, the patient is on AIRVO, at 60 L/m with an FiO2 of 80%. White count 12.5, hemoglobin 13.9, hematocrit 41.6, platelet count 80,000. Id. at 8.39. Sodium 135, potassium 4.5, chlorides 102, CO2 32, anion gap is 1, BUN is 20, creatinine 0.56. LDH is 1855. Chest x-ray shows diffuse interstitial and airspace disease. On 09/26/2020 patient seen in follow-up on selective care unit. Resting comfortably in bed, appears weak, but no acute distress, he is currently on 2 L of oxygen his pulse ox of 99%, his been afebrile, hemodynamically he is stable, appears to breathing comfortably, denies any chest discomfort, he remains on Cardizem infusion, his heart rate is better controlled, ideology is following, his Cardizem is infusing at 5 mg per hour, he is on Lovenox prophylactic dose 40 mg daily, he is also on oral amiodarone and metoprolol 100 mg twice daily, patient continues on Remdesivir treatment for his Covid 19 pneumonia, and today is day 4 of treatment. No worsening hypoxia no worsening dyspnea, his last chest x-ray was done yesterday showing diffuse interstitial airspace disease. No fever, no headaches, cough, today's labs have been reviewed, electrolytes within normal limits, urine is 45, creatinine is 1.35, last d-dimer was yesterday at 0.42, his LDH and CRP were done yesterday, and overall slightly improved from admission. The patient is seen today 09/27/2020 in follow-up on the selective care unit. He is currently sitting up at the bedside. Awake and alert in no acute distress. He is maintaining O2 saturations in the 90s on room air. He is on day #5 of Remdesivir. He remains on Cardizem drip at 2.5 mg per hour. 0.9 normal saline at 20 ML's per hour. White count 7.0. Hemoglobin 16.1. D-dimer 0.5. Sodium 142. Potassium 4.4. Creatinine 1.20. LDH 939. C-reactive protein 13.6. He remains on dexamethasone, Lovenox, vitamin supplements. The patient is seen today 09/28/2020 follow-up on the selective care unit. Currently sitting up in bed. Awake and alert in no acute distress. Maintaining O2 saturations in the mid to upper 90s on room air. Afebrile. Remains on dexamethasone, Lovenox, vitamin supplements. Antiarrhythmics being adjusted per cardiology. Objective - Vital Signs Vital signs: Vital Signs Temp 97.8 F 09/28/20 08:00 Pulse 96 09/28/20 08:00 Resp 20 09/28/20 08:00 BP 137/89 09/28/20 08:00 Pulse Ox 96 09/28/20 08:00 Intake & Output 09/27/20 09/28/20 09/28/20 18:59 06:59 18:59 Intake Total 348 236 Output Total 100 602 Balance 248 -366 Weight 138 kg Intake: Intake, IV Titration 80 Amount Sodium Chloride 0.9% 1, 80 000 ml @ 20 mls/hr IV . Q24H [facility] Rx#:[id number] Oral 268 236 Output: Urine 100 600 Stool 2 Other: Voiding Method Bedside Commode Urinal # Bowel Movements 1 - Exam GENERAL EXAM: Alert, active, pleasant 70-year-old gentleman, on room air, comfortable in no apparent distress. HEAD: Normocephalic. EYES: Normal reaction of pupils, equal size. NOSE: Clear with pink turbinates. THROAT: No erythema or exudates. NECK: No masses, no JVD. CHEST: No chest wall deformity. LUNGS: Equal air entry with crackles in the bilateral posterior bases. CVS: S1 and S2 normal with no audible murmur, irregular rhythm. ABDOMEN: No hepatosplenomegaly, normal bowel sounds, no guarding or rigidity. SPINE: No scoliosis or deformity SKIN: No rashes CENTRAL NERVOUS SYSTEM: No focal deficits, tone is normal in all 4 extremities. EXTREMITIES: There is no peripheral edema. No clubbing, no cyanosis. Peripheral pulses are intact. - Labs CBC & Chem 7: 09/27/20 10:54 09/27/20 10:54 Assessment and Plan Assessment: 1 Acute CoVID 19 infection with minimal respiratory complaints, on room air 2 Atrial fibrillation with rapid ventricular response, currently on a Cardizem drip 3 History of hypertension 4 History of paroxysmal atrial fibrillation, status post watchman procedure Plan: The patient was seen and evaluated by Dr. Harlan Mtz from the pulmonary standpoint, on room air Currently on Lovenox, dexamethasone, vitamin supplements Plan is for transfer to [facility] on the [place] on discharge I, the cosigning physician, performed a history & physical examination of the patient. Lungs sounds with crackles in the posterior bases. Maintaining good O2 saturations in the 90s on room air. I discussed the assessment and plan of care with my nurse practitioner, Maura Saldana. I attest to the above note as dictated by her.
[2020-09-28 14:21] VITALS: BMI 42.4
--- NOTE | 2020-09-28 14:52 | P.PN ---
Subjective 09/25/2020: This is a 70-year-old male who was admitted to the hospital secondary to Covid- 19. We have been consulted for new onset atrial fibrillation with RVR and elevated troponin. Patient remains in atrial fibrillation and medications have been adjusted for rate control. Patient was started on Cardizem drip, this morning at 10mg an hour. Patient is also receiving metoprolol 75 mg twice a day. Blood pressure 123/73 and 108/77, HR 80s-100s. He is on 2 L nasal cannula with oxygen saturations greater than 92%. Echocardiogram completed on 09/23/2020 revealed ejection fraction 55-60%, trace aortic regurgitation, trace tricuspid regurgitation, and trace mitral regurgitation. Laboratory reviewed, WBC 5.4, hemoglobin 15.8, platelets 173, d-dimer 0.42, sodium 139, potassium 4.9, serum creatinine 1.6, BUN 41. 09/27/2020: Patient seen at bedside. He does not any complaints. Denies chest pain, shortness of breath, palpitations. BP and 117/82, heart rate 111, afebrile, maintaining oxygen saturation on room air. laboratory data reviewed, sodium 142, potassium 4.4, serum creatinine 1.20 (1.35 yesterday) BUN 40. D-dimer 0.50 Telemetry reviewed, patient in atrial fibrillation HR 110s-120s. Patient with episodes of 2 second pauses, right bundle branch block, atrial fibrillation with aberrancy 09/28/2020: Patient seen at bedside. He does not any complaints. Denies chest pain, shortness of breath, palpitations. BP 137/89 HR 96, afebrile, maintaining oxygen saturations on room air. PHYSICAL EXAM: Patient alert and oriented x 3, no acute distress Thorough physical exam not completed secondary to limited evaluation/examination and due to Covid19 ASSESSMENT: Covid 19 Acute hypoxic respiratory failure Abnormal troponins, peaked at 0.06, most likely realted to demand ischemia from prolonged atrial fibrillation with RVR, no evidence of acute coronary syndrome Acute Kidney Injury scR 1.35 from 1.45 Paroxysmal atrial fibrillation with RVR History of watchman procedure Hypertension PLAN: No anticoagulation necessary secondary to watchman procedure Will transition to Cardizem 180mg daily outpatient Continue metoprolol 100mg twice a day Patient started amiodarone on 400 mg twice a day on 09/24/20, will transition to amiodarone 200mg BID for a week, and patient to follow up with Dr. Danielson in the outpatient setting for further titration of medication Patient is stable and can be discharged from cardiology perspective Nurse practitioner note has been reviewed by physician. Signing provider agrees with the documented findings, assessment, and plan of care. Objective - Vital Signs Vital signs: Vital Signs Temp 97.8 F 09/28/20 08:00 Pulse 96 09/28/20 08:00 Resp 20 09/28/20 08:00 BP 137/89 09/28/20 08:00 Pulse Ox 96 09/28/20 08:00 Intake & Output 09/27/20 09/28/20 09/28/20 18:59 06:59 18:59 Intake Total 348 236 Output Total 100 602 Balance 248 -366 Weight 138 kg 138 kg Intake: Intake, IV Titration 80 Amount Sodium Chloride 0.9% 1, 80 000 ml @ 20 mls/hr IV . Q24H [facility] Rx#:[id number] Oral 268 236 Output: Urine 100 600 Stool 2 Other: Voiding Method Bedside Commode Urinal # Bowel Movements 1 - Labs CBC & Chem 7: 09/27/20 10:54 09/27/20 10:54
--- NOTE | 2020-09-28 14:52 | P.DS ---
Providers Date of admission: 09/23/20 06:23 Expected date of discharge: 09/28/20 Attending physician: Benny Matthew MD Consults: 09/23/20 06:23 Consult Physician Routine Consulting Provider: Yordan Kulkarni Consult Reason/Comments: A. fib with RVR. elevated troponin. Do you want consulting provider notified?: Yes 09/23/20 16:46 Consult Physician Routine Consulting Provider: Meme Bee Consult Reason/Comments: COVID positive, symptoms began 2 days ago Do you want consulting provider notified?: Yes Primary care physician: [facility] Course: Acute hypoxic respiratory failure secondary to Covid 19 pneumonitis Atrial fibrillation with RVR Acute Kidney Injury Hypertension, essential Patient is a 70-year-old male with a past medical history significant for hypertension and atrial fibrillation not on anticoagulation but has implanted watchman's device. He presented to the emergency department this morning with a chief complaint of palpitations accompanied by a fever, generalized weakness and fatigue, epigastric pain, and dyspnea. Patient was seen and fully evaluated in the emergency department resulting in diagnosis of atrial fibrillation with RVR in the 160's along with acute respiratory failure with hypoxia requiring oxygen supplementation. Pt reported he has been experiencing generalized weakness and fatigue along with a fever and loss of appetite beginning 2 days ago. He states prior to coming to the emergency department he awoke in with the feeling that his heart was racing and this was accompanied by epigastric pain described as a hunger-like pain, fever and shortness of breath. Pt reports resolution of epigastric pain and shortness of breath but continues to be febrile, feeling as though his heart is racing and has no appetite. EKG was obtained revealing A. fib RVR with ventricular rate of 158 bpm. Covid 19 virus PCR was POSITIVE. Troponins were found to be elevated at 0.056, 0.065, and 0.068. Chest x-ray showing no acute cardiopulmonary process. Echocardiogram revealed an ejection fraction of 55-60%. Patient was treated for A. fib RVR and started on a Cardizem infusion and admitted under our services with consultation to pulmonology and cardiology. Repeat chest x-ray completed 09/25/20 positive for right lower lobe infiltrate with possible tiny effusion. Pt recovered to room air with treatment for COVID and pneumonia, and by day of discharge, his heart rates were better controlled between 90-110s. Pt qualified for SNF for rehab prior to returning home. I spent 40 minutes preparing this discharge. Assessment: Gen: awake, alert HEENT: normocephalic, atraumatic, good hearing acuity, moist mucous membranes Resp: good air exchange, breathing comfortably with no accessory muscle use, clear to auscultation bilaterally with mild bibasilar crackles CVS: good distal perfusion x 4, irregular rhythm and tachycardic without murmurs GI: soft, NTTP, ND appropriate bowel sounds : no SPT, no CVAT, moreno catheter not present MSK: no pitting edema, no clubbing Neuro: non-focal, moving all extremities Psych: cooperative, euthymic mood Patient Condition at Discharge: Good Plan - Discharge Summary Discharge Rx Participant: Yes New Discharge Prescriptions: New dexAMETHasone [Hexadrol] 6 mg PO DAILY #5 tab Famotidine [Pepcid] 40 mg PO DAILY tab Albuterol Inhaler [Ventolin Hfa Inhaler] 2 puff INHALATION RT-QID PRN puff PRN Reason: Shortness Of Breath Or Wheezing Ascorbic Acid [Vitamin C] 1,000 mg PO DAILY tab Metoprolol Tartrate [Lopressor] 100 mg PO BID 30 Days #60 tab Amiodarone [Cordarone] 200 mg PO BID 15 Days #30 tab Melatonin 3 mg PO HS PRN tablet PRN Reason: Insomnia Zinc Sulfate [Orazinc] 220 mg PO DAILY cap Acetaminophen Tab [Tylenol] 650 mg PO Q6HR PRN tab PRN Reason: Mild Pain Or Fever > 100.5 Diltiazem Cd [Cardizem CD] 180 mg PO DAILY 30 Days #30 cap.er.24h Continue Hydrocortisone Cream [Hydrocortisone 2.5% Cream] 1 applic TOPICAL BID PRN PRN Reason: Rash HYDROcodone/APAP 10-325MG [[place] 10-325] 1 tab PO TID PRN PRN Reason: Pain Furosemide [Lasix] 80 mg PO BID PRN PRN Reason: Edema Benazepril [Lotensin] 10 mg PO DAILY Aspirin EC [Ecotrin Low Dose] 81 mg PO DAILY Fluticasone Nasal [place] [Flonase Nasal [place]] 2 spr EA NOSTRIL DAILY PRN PRN Reason: Allergy Symptoms Econazole Nitrate [Econazole Nitrate 1%] 1 applic TOPICAL DAILY PRN PRN Reason: Rash Potassium Chloride 8 meq PO DAILY PRN PRN Reason: WITH LASIX oxyCODONE HCL [oxyCODONE HCL (IR)] 20 mg PO QID PRN PRN Reason: Pain Discontinued Metoprolol Tartrate [Lopressor] 25 mg PO BID Amoxicillin 500 mg PO Q8H Discharge Medication List Aspirin EC [Ecotrin Low Dose] 81 mg PO DAILY 04/06/20 [History] Benazepril [Lotensin] 10 mg PO DAILY 04/06/20 [History] Econazole Nitrate [Econazole Nitrate 1%] 1 applic TOPICAL DAILY PRN 04/06/20 [History] Fluticasone Nasal [place] [Flonase Nasal [place]] 2 spr EA NOSTRIL DAILY PRN 04/06/20 [History] Furosemide [Lasix] 80 mg PO BID PRN 04/06/20 [History] HYDROcodone/APAP 10-325MG [[place] 10-325] 1 tab PO TID PRN 04/06/20 [History] Hydrocortisone Cream [Hydrocortisone 2.5% Cream] 1 applic TOPICAL BID PRN 04/06/20 [History] Potassium Chloride 8 meq PO DAILY PRN 04/06/20 [History] oxyCODONE HCL [oxyCODONE HCL (IR)] 20 mg PO QID PRN 09/23/20 [History] Acetaminophen Tab [Tylenol] 650 mg PO Q6HR PRN tab 09/28/20 [Rx] Albuterol Inhaler [Ventolin Hfa Inhaler] 2 puff INHALATION RT-QID PRN puff 09/28/20 [Rx] Amiodarone [Cordarone] 200 mg PO BID 15 Days #30 tab 09/28/20 [Rx] Ascorbic Acid [Vitamin C] 1,000 mg PO DAILY tab 09/28/20 [Rx] Diltiazem Cd [Cardizem CD] 180 mg PO DAILY 30 Days #30 cap.er.24h 09/28/20 [Rx] Famotidine [Pepcid] 40 mg PO DAILY tab 09/28/20 [Rx] Melatonin 3 mg PO HS PRN tablet 09/28/20 [Rx] Metoprolol Tartrate [Lopressor] 100 mg PO BID 30 Days #60 tab 09/28/20 [Rx] Zinc Sulfate [Orazinc] 220 mg PO DAILY cap 09/28/20 [Rx] dexAMETHasone [Hexadrol] 6 mg PO DAILY #5 tab 04/08/21 [Rx] Follow up Appointment(s)/Referral(s): Meme Bee MD [STAFF PHYSICIAN] - 10/27/20 2:00 pm [facility], [NON-STAFF] - ([facility] will call you to set up your first visit. Please call them if you have any questions regarding home care. ) Willow Danielson MD [STAFF PHYSICIAN] - 10/12/20 3:30 pm Sussy Moe MD [Primary Care Provider] - 10/03/20 11:00 am (Televisit. Office will text you a link for the televisit) Patient Instructions/Handouts: Diltiazem (By mouth), Amiodarone (By mouth) Discharge Disposition: TRANSFER TO SNF/ECF Plan of Treatment: Amiodarone should not be stopped abruptly. Take 200mg Twice a day for 7 days. Follow up with Dr. Danielson office for further titration outpatient.
[2020-09-28] MEDS ORDERED: AMIODARONE 200 MG TAB PO SCH (21:00)
[2020-09-29] MEDS ORDERED: DILTIAZEM CD 180 MG CAP.ER.24H PO SCH (09:00)
== END 2020-09-28 18:39 | DRG 177 ==
LOC: EC 04:31 → 3SCARD 06:23
PROVIDERS: ADMIT Internal Medicine; ATTEND Internal Medicine
PROC: XW033E5 Introduction of Remdesivir Anti-infective into Peripheral Vein, Percutaneous Approach, New Technology Group 5 (ICD-10-PCS; principal; 2020-09-24)
DX: U07.1 COVID-19 (principal); J96.01 Acute respiratory failure with hypoxia; J12.82 Pneumonia due to coronavirus disease 2019; I26.99 Other pulmonary embolism without acute cor pulmonale; I48.19 Other persistent atrial fibrillation; I24.8 Other forms of acute ischemic heart disease; N17.9 Acute kidney failure, unspecified; E87.1 Hypo-osmolality and hyponatremia; R00.2 Palpitations; Z79.82 Long term (current) use of aspirin; Z87.891 Personal history of nicotine dependence; Z82.49 Family history of ischemic heart disease and other diseases of the circulatory system; I10 Essential (primary) hypertension; D69.6 Thrombocytopenia, unspecified; Z95.818 Presence of other cardiac implants and grafts; G89.29 Other chronic pain; I45.10 Unspecified right bundle-branch block; E86.1 Hypovolemia; Z79.01 Long term (current) use of anticoagulants; R00.0 Tachycardia, unspecified
CPT/HCPCS: 36415; 71045; 80048; 80053; 80061; 83615; 83735; 84132; 84443; 84484; 85025; 85027; 85379; 85610; 85730; 86140; 87324; 87635; 93005; 93306; 94640; 96374; 96375; 99291

== ENCOUNTER 2020-10-18 20:28 | Emergency (ER) | payer MEDICARE ==
[2020-10-18 20:46] VITALS: BP 138/102; PULSE 83; RESP 18; TEMP 98
--- NOTE | 2020-10-18 20:55 | ED ---
General Adult HPI - General Chief complaint: Extremity Problem,Nontraumatic Stated complaint: poss UTI Time Seen by Provider: 10/18/20 20:32 Source: patient, EMS, RN notes reviewed Mode of arrival: EMS Limitations: no limitations - History of Present Illness Initial comments: Patient is a pleasant 70-year-old male presenting to the emergency Department with hematuria. Onset of symptoms was today. Patient has had 4 episodes. Patient was on blood thinners and discontinued one week ago. Patient states [facility] Patient denies any dysuria. No back, abdominal, or flank pain. Patient states he has had a bulla on his right foot over the past week. Patient states there is some discomfort with wearing socks with this. Otherwise does not bother him much. - Related Data Home Medications Medication Instructions Recorded Confirmed Aspirin EC [Ecotrin Low Dose] 81 mg PO DAILY 04/06/20 10/18/20 Benazepril [Lotensin] 10 mg PO DAILY 04/06/20 10/18/20 Fluticasone Nasal [place] [Flonase 2 spr EA NOSTRIL DAILY PRN 04/06/20 10/18/20 Nasal [place]] Furosemide [Lasix] 80 mg PO BID PRN 04/06/20 10/18/20 HYDROcodone/APAP 10-325MG [[place] 1 tab PO TID PRN 04/06/20 10/18/20 10-325] Hydrocortisone Cream 1 applic TOPICAL BID PRN 04/06/20 10/18/20 [Hydrocortisone 2.5% Cream] Potassium Chloride 8 meq PO DAILY PRN 04/06/20 10/18/20 Zinc 50 mg PO DAILY 10/18/20 10/18/20 Previous Rx's Medication Instructions Recorded Acetaminophen Tab [Tylenol] 650 mg PO Q6HR PRN tab 09/28/20 Albuterol Inhaler [Ventolin Hfa 2 puff INHALATION RT-QID PRN puff 09/28/20 Inhaler] Ascorbic Acid [Vitamin C] 1,000 mg PO DAILY tab 09/28/20 Diltiazem Cd [Cardizem CD] 180 mg PO DAILY 30 Days #30 09/28/20 cap.er.24h Famotidine [Pepcid] 40 mg PO DAILY tab 09/28/20 Melatonin 3 mg PO HS PRN tablet 04/08/21 Metoprolol Tartrate [Lopressor] 100 mg PO BID 30 Days #60 tab 09/28/20 oxyCODONE HCL [oxyCODONE HCL (IR)] 20 mg PO QID PRN #18 tab 09/28/20 Cephalexin [Keflex] 500 mg PO QID #40 cap 10/18/20 Allergies Allergy/AdvReac Type Severity Reaction Status Date / Time No Known Allergies Allergy Verified 10/18/20 21:08 Review of Systems ROS Statement: Those systems with pertinent positive or pertinent negative responses have been documented in the HPI. ROS Other: All systems not noted in ROS Statement are negative. Constitutional: Denies: fever Eyes: Denies: eye pain ENT: Denies: ear pain Respiratory: Denies: cough Cardiovascular: Denies: chest pain Endocrine: Denies: fatigue Gastrointestinal: Denies: nausea, vomiting Genitourinary: Reports: hematuria. Denies: urgency, dysuria, frequency Musculoskeletal: Denies: back pain Skin: Reports: as per HPI, rash Past Medical History Past Medical History: Atrial Fibrillation, Hypertension History of Any Multi-Drug Resistant Organisms: None Reported Past Surgical History: Joint Replacement, Orthopedic Surgery, Tonsillectomy Additional Past Surgical History / Comment(s): WATCHMAN, MULTIPLE ORTHO SX Past Anesthesia/Blood Transfusion Reactions: No Reported Reaction Past Psychological History: No Psychological Hx Reported Smoking Status: Former smoker Past Alcohol Use History: None Reported Past Drug Use History: None Reported - Past Family History Mother Family Medical History: Coronary Artery Disease (CAD) General Exam Limitations: no limitations General appearance: alert, in no apparent distress Head exam: Present: normocephalic Eye exam: Present: normal appearance Neck exam: Present: normal inspection Respiratory exam: Present: normal lung sounds bilaterally Cardiovascular Exam: Present: regular rate, normal rhythm Expanded Peripheral pulses: 2+: Dorsalis Pedis (R), Dorsalis Pedis (L) GI/Abdominal exam: Present: soft. Absent: tenderness Extremities exam: Present: other (Right dorsal foot with approximate 3 cm bulla with clear/yellow fluid inside. No tenderness. Mild foot edema. Right third toe with stage I ulcer. Toes have mild purplish discoloration with Refill 3 seconds.) Neurological exam: Present: alert Psychiatric exam: Present: normal affect, normal mood Skin exam: Present: other (Right foot bulla, purplish discoloration of the distal toes of the right foot with cap refill 3 seconds.) Course Vital Signs 10/18/20 20:37 Temperature 98.0 F Pulse Rate 83 Respiratory 18 Rate Blood Pressure 138/102 O2 Sat by Pulse 94 L Oximetry Medical Decision Making - Medical Decision Making Patient reevaluated and resting comfortably in bed. Patient updated on results and need for follow-up - Lab Data Result diagrams: 10/18/20 21:02 10/18/20 21:02 Lab Results 10/18/20 10/18/20 10/18/20 Range/Units 21:02 21:02 21:02 WBC 5.9 (3.8-10.6) k/uL RBC 4.76 (4.30-5.90) m/uL Hgb 14.0 (13.0-17.5) gm/dL Hct 44.1 (39.0-53.0) % MCV 92.7 (80.0-100.0) fL MCH 29.4 (25.0-35.0) pg MCHC 31.8 (31.0-37.0) g/dL RDW 15.8 H (11.5-15.5) % Plt Count 115 L (150-450) k/uL MPV 7.1 Neutrophils % 77 % Lymphocytes % 13 % Monocytes % 5 % Eosinophils % 2 % Basophils % 1 % Neutrophils # 4.5 (1.3-7.7) k/uL Lymphocytes # 0.8 L (1.0-4.8) k/uL Monocytes # 0.3 (0-1.0) k/uL Eosinophils # 0.1 (0-0.7) k/uL Basophils # 0.0 (0-0.2) k/uL PT (9.0-12.0) sec INR (<1.2) APTT (22.0-30.0) sec Sodium 143 (137-145) mmol/L Potassium 4.6 (3.5-5.1) mmol/L Chloride 106 (98-107) mmol/L Carbon Dioxide 33 H (22-30) mmol/L Anion Gap 4 mmol/L BUN 25 H (9-20) mg/dL Creatinine 1.62 H (0.66-1.25) mg/dL Est GFR (CKD-EPI)AfAm 48 (>60 ml/min/1.73 sqM) Est GFR (CKD-EPI)NonAf 42 (>60 ml/min/1.73 sqM) Glucose 123 H (74-99) mg/dL Calcium 8.5 (8.4-10.2) mg/dL Total Bilirubin 1.0 (0.2-1.3) mg/dL AST 38 (17-59) U/L ALT 43 (4-49) U/L Alkaline Phosphatase 52 (38-126) U/L Total Protein 6.0 L (6.3-8.2) g/dL Albumin 3.1 L (3.5-5.0) g/dL Urine Color Yellow Urine Appearance Cloudy (Clear) Urine pH 6.5 (5.0-8.0) Ur Specific [place] 1.020 (1.001-1.035) Urine Protein 1+ H (Negative) Urine Glucose (UA) Negative (Negative) Urine Ketones Negative (Negative) Urine Blood Large H (Negative) Urine Nitrite Positive (Negative) Urine Bilirubin Negative (Negative) Urine Urobilinogen 4.0 (<2.0) mg/dL Ur Leukocyte Esterase Large H (Negative) Urine RBC >182 H (0-5) /hpf Urine WBC >182 H (0-5) /hpf Urine WBC Clumps Few H (None) /hpf Ur Squamous Epith Cells 1 (0-4) /hpf Urine Bacteria Occasional H (None) /hpf Hyaline Casts 7 H (0-2) /lpf Urine Mucus Rare H (None) /hpf 10/18/20 Range/Units 22:26 WBC (3.8-10.6) k/uL RBC (4.30-5.90) m/uL Hgb (13.0-17.5) gm/dL Hct (39.0-53.0) % MCV (80.0-100.0) fL MCH (25.0-35.0) pg MCHC (31.0-37.0) g/dL RDW (11.5-15.5) % Plt Count (150-450) k/uL MPV Neutrophils % % Lymphocytes % % Monocytes % % Eosinophils % % Basophils % % Neutrophils # (1.3-7.7) k/uL Lymphocytes # (1.0-4.8) k/uL Monocytes # (0-1.0) k/uL Eosinophils # (0-0.7) k/uL Basophils # (0-0.2) k/uL PT 11.7 (9.0-12.0) sec INR 1.1 (<1.2) APTT 23.5 (22.0-30.0) sec Sodium (137-145) mmol/L Potassium (3.5-5.1) mmol/L Chloride (98-107) mmol/L Carbon Dioxide (22-30) mmol/L Anion Gap mmol/L BUN (9-20) mg/dL Creatinine (0.66-1.25) mg/dL Est GFR (CKD-EPI)AfAm (>60 ml/min/1.73 sqM) Est GFR (CKD-EPI)NonAf (>60 ml/min/1.73 sqM) Glucose (74-99) mg/dL Calcium (8.4-10.2) mg/dL Total Bilirubin (0.2-1.3) mg/dL AST (17-59) U/L ALT (4-49) U/L Alkaline Phosphatase (38-126) U/L Total Protein (6.3-8.2) g/dL Albumin (3.5-5.0) g/dL Urine Color Urine Appearance (Clear) Urine pH (5.0-8.0) Ur Specific [place] (1.001-1.035) Urine Protein (Negative) Urine Glucose (UA) (Negative) Urine Ketones (Negative) Urine Blood (Negative) Urine Nitrite (Negative) Urine Bilirubin (Negative) Urine Urobilinogen (<2.0) mg/dL Ur Leukocyte Esterase (Negative) Urine RBC (0-5) /hpf Urine WBC (0-5) /hpf Urine WBC Clumps (None) /hpf Ur Squamous Epith Cells (0-4) /hpf Urine Bacteria (None) /hpf Hyaline Casts (0-2) /lpf Urine Mucus (None) /hpf - Radiology Data Radiology results: image reviewed (Right foot x-ray shows soft tissue swelling. An clinic changes in detail or joint. Abdominal x-ray shows nonacute abdomen.) Disposition Clinical Impression: Urinary tract infection, Skin bulla Disposition: HOME SELF-CARE Condition: Stable Instructions (If sedation given, give patient instructions): Urinary Tract Infection in Men (ED) Additional Instructions: Please follow-up with your primary care physician in the next day or 2 for re check. Please also have your doctor recheck your foot. Return for fevers, weakness, worsening or change in symptoms or other concerns. [facility] Prescriptions: Cephalexin [Keflex] 500 mg PO QID #40 cap Is patient prescribed a controlled substance at d/c from ED?: No Referrals: Sussy Moe MD [Primary Care Provider] - 1-2 days Time of Disposition: 22:54
[2020-10-18 21:12] LABS: Basophils % (A) 1 %; Eosinophils # (A) 0.1 k/uL (0-0.7); Eosinophils % (A) 2 %; HCT 44.1 % (39.0-53.0); Lymphocytes # (A) 0.8 k/uL (1.0-4.8); Lymphocytes % (A) 13 %; MCH 29.4 pg (25.0-35.0); MCHC 31.8 g/dL (31.0-37.0); MCV 92.7 fL (80.0-100.0); Mean Platelet Volume 7.1; Monocytes # (A) 0.3 k/uL (0-1.0); Monocytes % (A) 5 %; Neutrophils # (A) 4.5 k/uL (1.3-7.7); Neutrophils % (A) 77 %; Platelet Count 115 k/uL (150-450); RBC 4.76 m/uL (4.30-5.90); RDW 15.8 % (11.5-15.5); WBC 5.9 k/uL (3.8-10.6)
[2020-10-18 21:21] LABS: Appearance,Urine Cloudy (Clear); Bacteria,Urine Occasional /hpf; Bilirubin,Urine Negative (Negative); Blood,Urine Large (Negative); Color,Urine Yellow; Glucose,Urine (UA) Negative (Negative); Hyaline Casts,Urine 7 /lpf (0-2); Ketones,Urine Negative (Negative); Leukocyte Esterase,Urine Large (Negative); Mucus,Urine Rare /hpf; Nitrite,Urine Positive (Negative); PH, Urine 6.5 (5.0-8.0); Protein,Urine 1+ (Negative); RBC,Urine >182 /hpf (0-5); Squamous Epithelial Cell,Urine 1 /hpf (0-4); WBC,Urine >182 /hpf (0-5)
[2020-10-18 21:22] LABS: Albumin 3.1 g/dL (3.5-5.0); Calcium 8.5 mg/dL (8.4-10.2)
[2020-10-18 21:24] LABS: Potassium 4.6 mmol/L (3.5-5.1)
--- NOTE | 2020-10-18 22:29 | XR ---
EXAMINATION TYPE: XR abdomen 1V DATE OF EXAM: 10/18/2020 COMPARISON: NONE HISTORY: Hematuria. TECHNIQUE: 3 views supine FINDINGS: There is no evidence of intestinal obstruction or pneumoperitoneum. Fecal pattern is normal . There is no sign of a mass. There are no pathologic calcifications over the kidneys. IMPRESSION: Nonacute abdomen.
--- NOTE | 2020-10-18 22:30 | XR ---
EXAMINATION TYPE: XR foot complete RT DATE OF EXAM: 10/18/2020 COMPARISON: NONE HISTORY: Foot swelling TECHNIQUE: 3 views FINDINGS: There is soft tissue swelling of the forefoot. There is soft tissue swelling around the low er leg. The metatarsals are intact. There is some flexion deformity of the toes. I see no fracture no r dislocation. There is some narrowing of the subtalar joint space. IMPRESSION: Soft tissue swelling. No fracture seen. There is probably some ankylotic change in the mondragon btalar joint.
[2020-10-18] MEDS ORDERED: cefTRIAXone IN SWFI 1,000 MG/10 ML SYRINGE IVP STA (22:52)
[2020-10-18 23:04] LABS: INR 1.1 (<1.2); Partial Thromboplastin Time 23.5 sec (22.0-30.0); Prothrombin Time 11.7 sec (9.0-12.0)
== END 2020-10-19 01:25 | disposition home or self-care (01) ==
LOC: EC 20:28
DX: N39.0 Urinary tract infection, site not specified (principal); R23.8 Other skin changes; I48.91 Unspecified atrial fibrillation; I10 Essential (primary) hypertension; Z90.09 Acquired absence of other part of head and neck; Z87.891 Personal history of nicotine dependence; Z79.01 Long term (current) use of anticoagulants
CPT/HCPCS: 99284; 36415; 80053; 85025; 85610; 85730; 81001; 87040; 87086; 73630; 74018; 96374; J0696; 87077; 87186

== ENCOUNTER → 2021-11-01 | Outpatient (CLI) | payer MEDICARE ==
--- NOTE | 2021-11-01 21:56 | CT ---
EXAMINATION TYPE: CT wrist RT wo con DATE OF EXAM: 11/01/2021 COMPARISON: None available HISTORY: pain CT DLP: 207.3 mGycm Automated exposure control for dose reduction was used. TECHNIQUE: Multiplanar CT scan of the right wrist without IV contrast administration. 3-D reconstruct ion images were generated on an independent workstation and reviewed. FINDINGS: Previous dorsal fixation of the wrist joint from the left third metacarpal bone down to the distal ra dial end, using a plate and multiple screws. Slight withdrawal of the distal second screw with slight ly displaced fracture of the slightly withdrawn fourth distal screw, best appreciated in sagittal mu ges. There is also apparently nondisplaced break of the plate at the level of the fifth distal screw. Multiple tiny metallic fragments seen within the distal radial end. Scattered soft tissue metallic fr agments are also noted. Osteopenia. Cortical bone thickening along the plate. Severe deformity, fragm entation and sclerotic changes of the distal radial articular surface with severe deformity of the di stal radioulnar articulation and significant negative ulnar variance. No definite acute fracture line identified. Associated remodeling and deformity of the carpal bones with partial fusion and proximal displacement of the fusiform bone. Degenerative changes of the first and fifth carpometacarpal articulations with adjacent soft tissue calcification/bone fragments. Chronic healed fracture of the fifth metacarpal b ase. Severe degenerative changes of the first, second and to a lesser extent third metacarpophalangea l joints. Scattered arterial atherosclerotic calcifications. IMPRESSION: Dorsal fixation of the wrist joint demonstrating prosthesis break and other chronic findings as detai led above. Recommend orthopedic consultation. Further bone scan/gallium scan assessment can be consid ered if clinically required.
== END | disposition home or self-care (01) ==
LOC: RADCTMAIN 13:48
PROVIDERS: ATTEND Orthopaedic Surgery Hand Surgery
DX: T84.018A Broken internal joint prosthesis, other site, initial encounter (principal); M85.841 Other specified disorders of bone density and structure, right hand; M18.11 Unilateral primary osteoarthritis of first carpometacarpal joint, right hand; Y79.2 Prosthetic and other implants, materials and accessory orthopedic devices associated with adverse incidents